=== PATIENT | female | born 1965 | race African-American/Black ===

== ENCOUNTER 2019-02-25 11:52 | Inpatient (IN) | payer MEDICARE, MEDICAID ==
[2019-02-25 15:22] VITALS: BMI 23.9
[2019-02-25] MEDS ORDERED: Ondansetron PF 4 MG/2 ML Vial IVP PRN (15:26)
[2019-02-25] MEDS ORDERED: Ketorolac Tromethamine 30 MG/ML VIAL IVP PRN (15:27)
[2019-02-25] MEDS ORDERED: Morphine 2 MG/ML SYRINGE SLOW IVP PRN (15:28)
[2019-02-25] MEDS ORDERED: Morphine 4 MG/ML VIAL SLOW IVP PRN (15:29)
[2019-02-25] MEDS ORDERED: D5 1/2 NS w/20 mEq KCL 1,000 ML IV SCH (15:30)
[2019-02-25] MEDS ORDERED: Dextrose 5% in Water 1,000 ML IV PRN (15:35)
[2019-02-25] MEDS ORDERED: Dextrose 50% Abboject 50 ML SYRINGE SLOW IVP PRN (15:35)
[2019-02-25] MEDS ORDERED: Sodium Chloride 0.9% 1,000 ML IV SCH (15:45)
[2019-02-25] MEDS ORDERED: Potassium Chloride 40 MEQ in Sodium Chloride 0.9% 500 ML IVPB SCH (16:15)
--- NOTE | 2019-02-25 16:30 | ULT ---
EXAM: US Gallbladder RUQ PROVIDED CLINICAL HISTORY: Acute pancreatitis COMPARISON: None FINDINGS: The pancreas is largely obscured. The IVC appears normal. The liver demonstrates no mass or intrahepatic biliary ductal dilatation. The common duct appears dil ated, measuring 9 mm. Echogenic nonshadowing mobile material seen within the gallbladder lumen compatible with sludge/nonsh adowing stones. There is diffuse gallbladder wall thickening measuring about 3 mm. Sonographic Oseguera sign is documented as negative. Right kidney demonstrates no evidence for hydronephrosis or mass. IMPRESSION: 1. Gallbladder sludge/nonshadowing stones with gallbladder wall thickening. Consider HIDA scan as ind icated. 2. Prominent common duct. Correlate with laboratory values. Consider MRCP if there is concern for marta iary obstructive change.
--- NOTE | 2019-02-25 16:50 | HP ---
PRIMARY CARE PHYSICIAN: Milad Rizo MD. CHIEF COMPLAINT: Worsening abdominal pain. HISTORY OF PRESENT ILLNESS: A 53-year-old female with known history of chronic recurrent pancreatitis, who was recently discharged from [facility] following admission for acute pancreatitis in January, now presents with acute progressively worsening abdominal pain. The patient reportedly developed abdominal pain three days ago associated with nausea and vomiting, which progressively has worsened since then to its peak of 10/10 earlier this morning, hence presentation to the ER in [place]. The patient was treated with analgesic and further evaluation with CT scan of the abdomen and pelvis showed new fluid density around the head and neck of pancreas suggestive of pseudocyst. The patient is transferred over here for further evaluation and treatment since there is no GI physician there in [place]. The patient currently rates her pain at 6/10 after treatment with morphine and Ketoralac. Nausea and vomiting also have subsided with antiemetics and more so, the patient has not had anything to eat or drink today. Last emesis was yesterday. The patient, however, denied hematemesis, hematochezia, melena, hematuria, dysuria, leg swelling, dizziness, chest pain, palpitation, shortness of breath, or focal weakness. She admitted to headache and cough with sputum production, which has been ongoing since about 1 month. She also admitted to tobacco use and history of COPD. There is no history of fever, chills, or rigors. PAST MEDICAL HISTORY: 1. Chronic alcoholic pancreatitis. 2. Choledocholithiasis, status post ERCP and removal of stone. 3. Hypertension. 4. Gastroesophageal reflux disease. 5. Goiter. 6. Hypothyroidism. 7. Type 2 diabetes mellitus. 8. Peripheral neuropathy. 9. COPD. 10. Tobacco abuse disorder. PAST SURGICAL HISTORY: 1. Hysterectomy. 2. Right shoulder surgery. 3. ERCP. FAMILY HISTORY: Significant for hypertension in father. The patient does not know mother's medical history as she in her 20s. SOCIAL HISTORY: The patient currently lives with boyfriend. She is a current everyday smoker. Claims to smoke about six cigarettes per day. She is a former alcoholic, who is sober in the last one year. Denied recreational drug use. ALLERGIES: THE PATIENT REPORTED ALLERGIC REACTION TO KEFLEX. THE REACTION IS SAID TO BE SKIN SHANKS AND BREAKOUT. HOME MEDICATIONS: 1. Ibuprofen 800 mg p.o. t.i.d. p.r.n. for pain. 2. Amitriptyline 50 mg p.o. daily at bedtime. 3. Estradiol 1 mg p.o. daily. 4. Levothyroxine 75 mcg p.o. daily. 5. Lisinopril 10 mg p.o. daily. 6. Omeprazole 40 mg p.o. daily. 7. Sertraline 50 mg p.o. daily at bedtime. 8. Levemir 55 units subcutaneously b.i.d. 9. NovoLog 6 units t.i.d. with meals. 10. Ondansetron 4 mg q.6 sublingually p.r.n. for nausea and vomiting. REVIEW OF SYSTEMS: A 12-point review of system performed was negative other than pertinent positives and negatives included in the history of present illness. PHYSICAL EXAMINATION: VITAL SIGNS: Temperature 97.6, pulse 70, respiratory rate 16, SpO2 of 100% on room air, blood pressure is 141/81. GENERAL: Middle-age female, in [id number] painful distress. Afebrile. Anicteric. Acyanotic. HEENT: Normocephalic, atraumatic. Oral mucosa is moist. NECK: Supple. Nontender with good range of motion. No obvious masses or lymphadenopathy appreciated. CARDIOVASCULAR: Regular rhythm and rate with normal heart sounds one and two. No murmur was appreciated. RESPIRATORY: Good air entry bilaterally with some transmitted breath sounds. No obvious crackle or rhonchi was appreciated. No use of accessory muscles also was appreciated. GI: Full, soft, nondistended with normal bowel sounds. Right upper quadrant and epigastric tenderness noted. EXTREMITIES: Grossly normal looking atraumatic with no edema or erythema. Distal pulses are palpable. MOLD PRESS OPERATOR: Conscious and alert and oriented x3 with appropriate mental status. Cranial nerves 2 through 12 are grossly intact. The patient moves all extremities. PSYCHIATRIC: Normal affect with good insight. No agitation or restlessness. DIAGNOSTIC DATA: CBC showed WBC count of 9.2, hemoglobin of 12.1, MCV of 89.4, platelets of 182. CMP showed sodium 143, potassium 3.3, chloride 104, CO2 of 29, BUN 11, creatinine 0.98, glucose 83, calcium 9.4. Total bilirubin 0.5, AST 11, ALT 10, alkaline phosphatase 106, total protein 6.9, albumin 3.8, and globulin 3.1. Lipase is 20. Lactic acid is 2.2. Initial troponin is 0.017. CT scan of the abdomen and pelvis showed clear lung bases with unremarkable liver and spleen as well as atrophy of the pancreas with dilated pancreatic duct and pancreatic calcification again noted as before. However, there is a new fluid density seen anterior to the pancreatic neck measuring 2.0 cm with mild surrounding inflammatory changes, which seems to be more prominent today compared to prior CT scan of October 2018. ASSESSMENT: 1. Severe abdominal pain. 2. Presumed acute on chronic pancreatitis. 3. New parapancreatic fluid density concerning for pseudocyst. 4. Diabetes mellitus. 5. Chronic cough with sputum production. 6. Chronic obstructive pulmonary disease with possible acute bronchitis. 7. Type 2 diabetes mellitus. 8. Tobacco abuse disorder. PLAN: 1. Keep the patient n.p.o. 2. Start IV fluid therapy with normal saline at 125 as well as D5 water at 50 mL/h. 3. [employer] narcotic analgesic to get adequate pain control. 4. Consult GI for evaluation. 5. Hold long-acting insulin as the patient is n.p.o. for now. Continue sliding scale insulin. 6. Replete serum potassium and get magnesium in the morning. 7. Get urinalysis with reflex to culture as well as sputum culture. 8. Start DuoNeb. 9. DVT prophylaxis with Lovenox will be provided. 10. Further treatment to follow depending on hospital course. 11. The patient is in observation for now depending on hospital course. 12. Code status: Full code. Boyfriend is the surrogate decision maker. Job ID: [id number]
[2019-02-25] MEDS: Dextrose 5% in Water 1,000 ML IV SCH (16:54)
[2019-02-25] MEDS: Morphine 2 MG/ML SYRINGE SLOW IVP PRN (16:55)
[2019-02-25] MEDS: Nicotine 14 MG PATCH TD SCH (17:44)
[2019-02-25] MEDS: Sodium Chloride 0.9% 1,000 ML IV SCH (19:56)
[2019-02-25] MEDS: Famotidine/PF 20 mg/2ml Vial SLOW IVP SCH (19:59)
[2019-02-25 20:25] LABS: Bacteria/HPF None Seen HPF (None Seen); Bilirubin Negative (Negative); Blood, Urine Negative (Negative); Clarity Clear (Clear); Glucose, Urine (Dipstick) Normal (Negative); Leukocyte Negative Leu/uL (Negative); Nitrite Negative (Negative); Protein, Urine (Dipstick) Negative (Neg-Trace); RBC/HPF 0-3 HPF (0-3); Squamous Epithelial 0-3 HPF (0-3); Urobilinogen Normal mg/dL (Less than 2); WBC/HPF 0-3 HPF (0-3)
[2019-02-25 20:31] LABS: Urine Culture Reflex No No
[2019-02-25] MEDS: Morphine 4 MG/ML VIAL SLOW IVP PRN (22:24)
--- NOTE | 2019-02-26 02:20 | CON ---
DATE OF CONSULTATION: 02/25/2019 REASON FOR CONSULTATION: Acute on chronic pancreatitis. CONSULTING PROVIDER: Katia Landry Obi, MD. HISTORY OF PRESENT ILLNESS: The patient is a 53-year-old female with past medical history of COPD, diabetes with neuropathy, hypothyroidism, GERD, hypertension, choledocholithiasis (had ERCP a few months ago in [place]) and alcoholic pancreatitis with recurrent bouts of chronic pancreatitis for the last 20 years, presenting with increased midepigastric abdominal pain. The patient states that she has had recurrent bouts of pancreatitis that have been present for the last 20 years with her initial bout of pancreatitis secondary to increased alcohol consumption. She states that her last episode of pancreatitis was approximately 1-month ago and characterized by increased midepigastric pain. After treatment of this particular condition at the [facility] she was ultimately discharged to home and was in her usual state of health until approximately 2 to 3 days ago when she again had increased midepigastric abdominal pain characterized as a sharp/throbbing type sensation, would radiate to the right upper quadrant, was constant, and reached a severity of 10/10. The pain was worse with drinking cold liquids, turning movements, and eating solid food. The pain was better with administration of ice pack to the region, lying in the position, and the pain medication she has received here in the hospital. She was taking approximately 2 Tylenol and 4 ibuprofen (unknown dosing on both of these medications) for the last 2 to 3 days prior to admission as well. Associated symptoms included increased burping, nausea and vomiting of nonbloody emesis with increase in her abdominal pain, it prompted her to seek healthcare assistance back in the [place] ER. While in the ER, she was noted to have a CT scan that showed the presence of a fluid collection near the neck of the pancreas, so she was transferred to [facility] for further evaluation. Upon interviewing the patient, she states that her abdominal pain is similar to the bouts of pancreatitis that she has had in the past, although it is not as severe when compared to her most recent episode approximately 1-month ago. Currently, she denies any hematemesis, melena, hematochezia, fever, chills, dysphagia, odynophagia, or weight loss. Of note, the patient initially did not admit to illicit drug use, but upon questioning stated that she had used both cocaine and marijuana approximately 1 month ago. REVIEW OF SYSTEMS: A 10-category review of systems was obtained with all responses negative except for the pertinent positives as listed in HPI. PAST MEDICAL HISTORY: As per HPI. PAST SURGICAL HISTORY: Hysterectomy, right shoulder surgery, and more recently ERCP. FAMILY HISTORY: Denies any family history of GI malignancies. SOCIAL HISTORY: She currently smokes about 1/4 to 1/2 pack per day and also endorses use of marijuana and cocaine approximately 1 month ago. However, she denies use of alcohol and has been sober for at least 1 year. OUTPATIENT MEDICATIONS: Reviewed. ALLERGIES: KEFLEX. PHYSICAL EXAMINATION: VITAL SIGNS: Temperature 98.7, pulse 75, blood pressure 139/72, respiratory rate 16, saturating 97% on room air. GENERAL: The patient was lying in bed, in no acute distress. Alert and oriented x4. HEENT: Normocephalic, atraumatic. NECK: Supple. No JVD or scleral icterus noted. CARDIOVASCULAR: Regular rate and rhythm with no discernible murmurs, gallops, or rubs. RESPIRATORY: Clear to auscultation bilaterally with no discernible wheezes or rales. ABDOMEN: Hypoactive bowel sounds. Soft, nondistended. Tenderness to palpation in the midepigastric and right upper quadrant, but otherwise normal. EXTREMITIES: No cyanosis, clubbing, or edema. LABORATORY DATA: CBC with a white blood cell count of 9.2, hemoglobin 12.1, hematocrit 36.8, platelets 182. Chemistry with a sodium of 143, potassium 3.3, chloride 104, CO2 of 29, BUN 11, creatinine 0.98, glucose 83, AST 11, ALT 10, alkaline phosphatase 106, total bilirubin 0.5, lipase 20, TSH 10. BNP 287. Drug of abuse screen from December 2018, was positive for cocaine. IMAGING DATA: Right upper quadrant ultrasound was obtained on February 25, 2019, which showed the common bile duct dilated to approximately 9 mm with sludge/stone seen within the gallbladder and gallbladder wall thickening, but no evidence of cholecystitis. There was also mention of a CT that was obtained in [place] recently showing atrophy of the pancreas with dilated pancreatic duct and pancreatic calcifications. However, there was also a new fluid density seen anterior to the pancreatic neck measuring 2 cm in size with mild inflammatory changes surrounding it consistent with a possible pseudocyst. ASSESSMENT AND PLAN: The patient is a 53-year-old female with past medical history of COPD, tobacco abuse, diabetes with neuropathy, hypothyroidism, GERD, hypertension, choledocholithiasis status post ERCP and stone extraction, and recurrent bouts of chronic pancreatitis, presenting with what appears to be an acute on chronic bout of pancreatitis. Acute on chronic pancreatitis: The patient has a history of chronic pancreatitis that has been present for the last 20 years and usually associated with increased midepigastric abdominal pain that would radiate to her mid back and for which she has responded well to more conservative management. Upon questioning, she has never been on pancreatic enzyme supplementation (at least that she can recall) for her chronic pancreatitis. However, more recently, she did have a bout of pancreatitis approximately 1-month ago with significantly increased severity when compared to prior bouts and was evaluated and treated at [facility]. However, repeat imaging on this admission compared to one month ago was now showing the new appearance of a fluid density anterior to the pancreatic neck measuring 2 cm in size consistent with a possible pseudocyst. It does not have any complex aspects of it nor does it have septations that makes me think that this is something more than just a simple pseudocyst and may be a remnant of her pancreatitis episode approximately 1-month ago. At this time, she seems to be presenting with acute uncomplicated acute on chronic pancreatitis and should be treated with conservative management with IV fluids, pain control, and n.p.o. status. However, given the dilation of her common bile duct to 9 mm and the fact that she still has an intact gallbladder with stones in it, it is mildly concerning for a repeat bout of choledocholithiasis. However, her labs do not reflect an obstructive process at this time. RECOMMENDATIONS: 1. Would increase IV fluids to approximately 150-200 mL/h for the next 8-10 hours, then decrease to 150 mL/h for treatment of her acute on chronic pancreatitis. 2. Would maintain n.p.o. status for now. 3. Pain control per primary team. 4. We will consider advancing her diet tomorrow with the decrease in her IV fluids. 5. We will continue to trend her LFTs daily and if they begin to rise, would order an MRCP for further evaluation of the biliary tree. 6. No intervention is necessary for the pseudocyst as it will most likely be reabsorbed on its own. We will continue to follow. Please call with any questions. Job ID: [id number]
[2019-02-26] MEDS: Sodium Chloride 0.9% 1,000 ML IV SCH ×7 (03:28→22:06)
[2019-02-26] MEDS: Morphine 4 MG/ML VIAL SLOW IVP PRN ×2 (03:29→07:58)
[2019-02-26 06:10] LABS: #Eosinphils 0.1 thou/uL (0.0-0.7); #Lymphocytes 1.7 thou/uL (1.20-3.40); #Monocytes 0.3 thou/uL (0.11-0.59); #Neutrophils 3.6 thou/uL (1.40-6.50); %Basophils 0.3 % (0.0-1.0); %Eosinophils 2.5 % (0.0-10.0); %Monocytes 4.9 % (0.0-10.0); %Neutrophils 62.2 % (42.0-75.0); Hemoglobin 10.4 g/dL (12.0-16.0); Mean Corpuscular HGB CONC 33.7 g/dL (32.0-36.0); Mean Corpuscular Hemoglobin 31.5 pg (27.0-31.0); Mean Corpuscular Volume 93.3 fL (78.0-98.0); Mean Platelet Volume 9.5 fL (7.4-10.4); Platelet Count 162 thou/uL (130-400); RBC Distribution Width 13.5 % (11.5-14.5); Red Blood Cell (RBC) Count 3.32 mill/uL (4.20-5.40); White Blood Cell (WBC) Count 5.7 thou/uL (4.8-10.8)
[2019-02-26 06:35] LABS: ALT (SGPT) 9 U/L (8-55); AST (SGOT) 14 U/L (5-34); Albumin 3.4 g/dL (3.5-5.0); Alkaline Phosphatase 90 U/L (40-150); Anion Gap 9 mmol/L (10-20); BUN (Urea Nitrogen) 5 mg/dL (9.8-20.1); Bilirubin, Total 0.6 mg/dL (0.2-1.2); CRP (Inflammatory) 5.35 mg/dL (= or < 0.5); Calc. Creatinine Clearance 73 mL/min (70-130); Calcium 8.1 mg/dL (7.8-10.44); Carbon Dioxide 25 mmol/L (22-29); Chloride 98 mmol/L (98-107); Estimated GFR-MDRD 69; Globulin 2.7 g/dL (2.4-3.5); Glucose 446 mg/dL (70-105); Lipase 4 U/L (8-78); Magnesium 1.2 mg/dL (1.6-2.6); Potassium 3.2 mmol/L (3.5-5.1); Protein, Total 6.1 g/dL (6.0-8.3); Sodium 129 mmol/L (136-145)
[2019-02-26] MEDS: Dextrose 5% in Water 1,000 ML IV SCH (07:57)
[2019-02-26] MEDS: Enoxaparin Sodium 40 MG/0.4 ML SYRINGE SC SCH (08:00)
[2019-02-26] MEDS: Famotidine/PF 20 mg/2ml Vial SLOW IVP SCH ×2 (08:01→20:35)
[2019-02-26] MEDS ORDERED: Potassium Phosphate 30 MMOL in Sodium Chloride 0.9% 500 ML IVPB SCH (08:30)
[2019-02-26] MEDS ORDERED: Magnesium Sulfate 4 GM in Sodium Chloride 0.9% 250 ML 250 ML IVPB SCH (08:30)
[2019-02-26] MEDS: Insulin Glargine 12 UNITS in Pre-Filled Syringe 1 EACH SC SCH ×2 (09:25→20:35)
[2019-02-26] MEDS: Nicotine 14 MG PATCH TD SCH (16:15)
--- NOTE | 2019-02-26 16:33 | PDOC.HOSPP ---
- Subjective Encounter Date: 02/26/19 Encounter Time: 08:31 Subjective: 53 y/o female with chronic recurrent pancreatitis admitted with worsening abdominal pain associated with nausea and vomiting. Abdominal pain is better but abdomen is distended today. denied emesis or fever. - Objective Vital Signs & Weight: Vital Signs (12 hours) Temp Pulse Resp BP Pulse Ox 02/26/19 13:55 69 16 95 02/26/19 11:23 96 02/26/19 11:22 98.3 F 100 18 129/89 96 02/26/19 08:00 98 F 95 16 133/69 96 02/26/19 07:09 73 12 Weight Admit Weight 157 lb 4.8 oz Weight 157 lb 4.8 oz I&O: 02/25/19 02/26/19 02/27/19 06:59 06:59 06:59 Intake Total 3009 Output Total 2050 900 Balance 959 -900 Result Diagrams: 02/26/19 05:57 02/26/19 05:57 Additional Labs: Accuchecks 02/26/19 02/26/19 02/26/19 14:23 08:08 05:58 POC Glucose 155 H 223 H 212 H 02/25/19 02/25/19 02/25/19 23:09 20:11 17:49 POC Glucose 79 82 81 Hospitalist ROS - Medication Medications: Active Medications Generic Name Dose Route Start Last Admin Trade Name Freq PRN Reason Stop Dose Admin Albuterol/Ipratropium 3 ml 02/25/19 23:00 02/26/19 13:55 Duoneb NEB 3 ml [id number] GRETCHEN Administration Enoxaparin Sodium 40 mg 02/26/19 09:00 02/26/19 08:00 Lovenox SC 40 mg 0900 GRETCHEN Administration Famotidine 20 mg 02/25/19 21:00 02/26/19 08:01 Pepcid SLOW IVP 20 mg Q12HR GRETCHEN Administration Insulin Glargine 12 units/ 0.12 mls @ 0 mls/hr 02/26/19 09:00 02/26/19 09:25 Miscellaneous Medication SC Not Given BID GRETCHEN Sodium Chloride 1,000 mls @ 200 mls/hr 02/26/19 08:22 02/26/19 16:15 Normal Saline 0.9% IV 1,000 mls .Q5H GRETCHEN Administration Morphine Sulfate 4 mg 02/25/19 15:47 02/26/19 07:58 Morphine SLOW IVP 4 mg Q4H PRN Administration Severe Pain (7-10) Morphine Sulfate 2 mg 02/25/19 15:54 02/25/19 16:55 Morphine SLOW IVP 2 mg Q4H PRN Administration Moderate Pain (4-6) Nicotine 14 mg 02/25/19 16:00 02/26/19 16:15 Nicoderm Patch TD 14 mg Q24HR GRETCHEN Administration - Exam General Appearance: awake alert Eye: anicteric sclera ENT: normocephalic atraumatic Neck: supple, symmetric Heart: RRR Respiratory: no wheezes, no rales, no ronchi, normal chest expansion Gastrointestinal: soft, non-tender, normal bowel sounds, distended Extremities: no cyanosis, no edema Neurological: cranial nerve grossly intact, no focal deficits Psychiatric: normal affect, A&O x 3 Hosp A/P (1) Hypothyroidism Code(s): E03.9 - HYPOTHYROIDISM, UNSPECIFIED Status: Acute (2) Cholelithiasis Code(s): K80.20 - CALCULUS OF GALLBLADDER W/O CHOLECYSTITIS W/O OBSTRUCTION Status: Acute (3) Acute on chronic pancreatitis Code(s): K85.90 - ACUTE PANCREATITIS WITHOUT NECROSIS OR INFECTION, UNSP; K86.1 - OTHER CHRONIC PANCREATITIS Status: Acute (4) History of alcohol abuse Code(s): Z87.898 - PERSONAL HISTORY OF OTHER SPECIFIED CONDITIONS Status: Acute (5) DM II (diabetes mellitus, type II), controlled Code(s): E11.9 - TYPE 2 DIABETES MELLITUS WITHOUT COMPLICATIONS Status: Chronic (6) Essential hypertension Code(s): I10 - ESSENTIAL (PRIMARY) HYPERTENSION Status: Chronic (7) Hyponatremia Code(s): E87.1 - HYPO-OSMOLALITY AND HYPONATREMIA Status: Acute (8) Pancreatic pseudocyst/cyst Code(s): K86.2 - CYST OF PANCREAS; K86.3 - PSEUDOCYST OF PANCREAS Status: Acute (9) COPD with acute bronchitis Code(s): J44.0 - CHRONIC OBSTRUCTIVE PULMON DISEASE W ACUTE LOWER RESP INFCT; J20.9 - ACUTE BRONCHITIS, UNSPECIFIED Status: Acute - Plan Continue IVF therapy. Continue insulin therapy NPO to continue. Awaiting GI re evaluation Analgesic and antiemetic as needed Follow CMP
[2019-02-26] MEDS: Insulin Regular 300 UNITS/3 ML VIAL SC PRN (18:28)
[2019-02-26] MEDS: Morphine 2 MG/ML SYRINGE SLOW IVP PRN (23:10)
--- NOTE | 2019-02-26 23:35 | PRG ---
DATE OF SERVICE: 02/26/2019 REASON FOR CONSULTATION: Acute on chronic pancreatitis. SUBJECTIVE: The patient states that she was feeling much better today with significantly decreased abdominal pain. She was advanced in her diet to clear liquid diet and did experience a mild increase in her pain, but she could not differentiate whether or not this was her pancreatic pain versus hunger pains. However, she did also remark that she has had significant increased abdominal distention over the last 24 hours, but denies any lower extremity edema or difficulty breathing. Otherwise, she denies any nausea, vomiting, fevers, chills, hematemesis, melena, or hematochezia. Of note, initial evaluation of the patient could not be performed due to the fact that she went outside to smoke. OBJECTIVE: VITAL SIGNS: Temperature 98.6, pulse 79, blood pressure 144/84, respiratory rate 20, and saturating 98% on room air. GENERAL: The patient was lying in bed, in no acute distress. Alert and oriented x4. CARDIOVASCULAR: Regular rate and rhythm. RESPIRATORY: Clear to auscultation bilaterally. ABDOMEN: Normoactive bowel sounds. Soft. Mild to moderately distended. Tenderness to palpation in the midepigastric region. EXTREMITIES: No cyanosis, clubbing, or edema. LABORATORY DATA: CBC with a white blood cell count of 5.7, hemoglobin 10.4, hematocrit 31 . Chemistry with a sodium of 129, potassium 3.2, chloride 98, CO2 of 25, BUN 5, creatinine 1.09, glucose 446, AST 14, ALT 9, alkaline phosphatase 90, and total bilirubin 0.6. IMAGING DATA: No current GI imaging is available for review. ASSESSMENT AND PLAN: The patient is a 53-year-old -Citizen Of [place] female with past medical history of chronic obstructive pulmonary disease, tobacco abuse, diabetes with neuropathy, hypothyroidism, gastroesophageal reflux disease, hypertension, choledocholithiasis status post endoscopic retrograde cholangiopancreatography with stone extraction and recurrent bouts of pancreatitis, presenting with an acute on chronic bout of pancreatitis. Acute on chronic pancreatitis: The patient initially presented with increased midepigastric abdominal pain that was similar in location and character to her prior bouts of pancreatitis. She was ultimately evaluated in the [place] ER, where a CT scan was reportedly was performed showing a 2 cm fluid density anterior to the pancreatic neck concerning for possible pseudocyst. However, this imaging study is unavailable for review given the fact that it was performed outside our system. At this time, she is currently responding to more conservative management with aggressive IV fluid administration, although she does have increasing abdominal distention, which is worrisome for third spacing of fluid given the significant amount of fluids that she has gotten over the last 24 hours, and/or expansion of pseudocyst or development of ascites. RECOMMENDATIONS: 1. We would decrease her IV fluids to approximately 100 mL/h and further decrease with advancement of her diet. 2. Advance her diet as tolerated to full liquid diet. 3. Pain control per primary team. 4. Continue to trend her LFTs daily. 5. We would consider either CT of the abdomen and pelvis versus an abdominal ultrasound tomorrow if she continues to have significant abdominal distention. We will continue to follow. Please call with any questions. Job ID: [id number]
[2019-02-27] MEDS: Diabetic Tussin 200 MG/10 ML UDCUP PO PRN ×3 (01:16→17:33)
[2019-02-27 05:49] LABS: #Eosinphils 0.2 thou/uL (0.0-0.7); #Monocytes 0.3 thou/uL (0.11-0.59); #Neutrophils 2.9 thou/uL (1.40-6.50); %Basophils 0.7 % (0.0-1.0); %Eosinophils 4.1 % (0.0-10.0); %Lymphocytes 36.4 % (21.0-51.0); %Monocytes 5.8 % (0.0-10.0); Hemoglobin 11.4 g/dL (12.0-16.0); Mean Corpuscular HGB CONC 33.2 g/dL (32.0-36.0); Mean Corpuscular Hemoglobin 30.8 pg (27.0-31.0); Mean Corpuscular Volume 92.8 fL (78.0-98.0); Mean Platelet Volume 9.4 fL (7.4-10.4); Platelet Count 194 thou/uL (130-400); RBC Distribution Width 13.3 % (11.5-14.5); White Blood Cell (WBC) Count 5.5 thou/uL (4.8-10.8)
[2019-02-27 06:08] LABS: ALT (SGPT) 12 U/L (8-55); AST (SGOT) 15 U/L (5-34); Albumin 3.9 g/dL (3.5-5.0); Alkaline Phosphatase 101 U/L (40-150); Anion Gap 15 mmol/L (10-20); BUN (Urea Nitrogen) 5 mg/dL (9.8-20.1); Bilirubin, Total 0.6 mg/dL (0.2-1.2); Calc. Creatinine Clearance 96 mL/min (70-130); Calcium 8.9 mg/dL (7.8-10.44); Carbon Dioxide 25 mmol/L (22-29); Chloride 105 mmol/L (98-107); Estimated GFR-MDRD Greater than 90; Glucose 117 mg/dL (70-105); Magnesium 1.7 mg/dL (1.6-2.6); Potassium 3.1 mmol/L (3.5-5.1); Protein, Total 6.9 g/dL (6.0-8.3); Sodium 142 mmol/L (136-145)
[2019-02-27] MEDS: Famotidine/PF 20 mg/2ml Vial SLOW IVP SCH ×2 (07:58→20:45)
[2019-02-27] MEDS: Sodium Chloride 0.9% 1,000 ML IV SCH (07:58)
[2019-02-27] MEDS: Enoxaparin Sodium 40 MG/0.4 ML SYRINGE SC SCH (07:58)
[2019-02-27] MEDS: Insulin Glargine 12 UNITS in Pre-Filled Syringe 1 EACH SC SCH ×2 (07:59→20:44)
--- NOTE | 2019-02-27 08:02 | RAD ---
EXAM: Portable chest PROVIDED CLINICAL HISTORY: Cough COMPARISON: None FINDINGS: Cardiac and mediastinal silhouette is within normal limits. No focal consolidation, pleural fluid or pneumothorax evident. IMPRESSION: No evidence for an acute cardiopulmonary process.
[2019-02-27] MEDS: Morphine 2 MG/ML SYRINGE SLOW IVP PRN ×3 (09:04→20:53)
[2019-02-27] MEDS ORDERED: ISOVUE-370 76%-LOCM 1 ML ONE (12:52)
--- NOTE | 2019-02-27 13:43 | CT ---
EXAM: CT Abdomen Pelvis W Con PROVIDED CLINICAL HISTORY: Abdominal distention COMPARISON: 02/25/2019 FINDINGS: The visualized lung bases are free of significant opacity. Interval decrease in size of the previously described fluid collection adjacent to the head of the pa ncreas, now measuring about 7 mm. Heterogeneous enhancement of the pancreas along with numerous pancreatic calcifications are again noted and appear stable. Pneumobilia is noted, presumably on the basis of prior sphincterotomy. The solid abdominal organs demonstrate an otherwise unremarkable CT appearance. There is no bowel dilatation, free fluid or free air apparent. The appendix appears normal. Vascular calcifications are seen. The osseous structures demonstrate no concerning lytic or blastic lesions. IMPRESSION: Interval decrease in fluid collection adjacent to the head of the pancreas.
--- NOTE | 2019-02-27 16:30 | PDOC.HOSPP ---
- Subjective Encounter Date: 02/27/19 Encounter Time: 10:27 Subjective: 53 y/o female with chronic recurrent pancreatitis admitted with worsening abdominal pain associated with nausea and vomiting. Abdomen distension persisted. Abdominal pain, nausea and vomiting have subsided and patient is tolerating full liquid diet. Had worsening of cough and was started on antitussive last night with improvement. - Objective Vital Signs & Weight: Vital Signs (12 hours) Temp Pulse Resp BP Pulse Ox 02/27/19 14:29 70 14 02/27/19 11:50 98.7 F 70 18 136/86 100 02/27/19 08:00 98.3 F 70 18 131/85 100 02/27/19 06:41 80 14 Weight Admit Weight 157 lb 4.8 oz Weight 157 lb 4.8 oz I&O: 02/26/19 02/27/19 02/28/19 06:59 06:59 06:59 Intake Total 3009 3490 600 Output Total 2050 900 Balance 959 2590 600 Result Diagrams: 02/27/19 05:23 02/27/19 05:23 Additional Labs: Accuchecks 02/27/19 02/27/19 02/26/19 11:51 04:50 22:59 POC Glucose 212 H 110 188 H 02/26/19 02/26/19 20:01 17:01 POC Glucose 246 H 278 H Hospitalist ROS - Medication Medications: Active Medications Generic Name Dose Route Start Last Admin Trade Name Freq PRN Reason Stop Dose Admin Albuterol/Ipratropium 3 ml 02/25/19 23:00 02/27/19 14:29 Duoneb NEB 3 ml [id number] GRETCHEN Administration Enoxaparin Sodium 40 mg 02/26/19 09:00 02/27/19 07:58 Lovenox SC 40 mg 0900 GRETCHEN Administration Famotidine 20 mg 02/25/19 21:00 02/27/19 07:58 Pepcid SLOW IVP 20 mg Q12HR GRETCHEN Administration Guaifenesin 200 mg 02/27/19 01:13 02/27/19 08:00 Robitussin Sf PO 200 mg Q8H PRN Administration Cough Insulin Glargine 12 units/ 0.12 mls @ 0 mls/hr 02/26/19 09:00 02/27/19 07:59 Miscellaneous Medication SC 0.12 mls BID GRETCHEN Administration Sodium Chloride 1,000 mls @ 100 mls/hr 02/26/19 21:23 02/27/19 07:58 Normal Saline 0.9% IV 1,000 mls .Q10H GRETCHEN Administration Insulin Human Regular 0 units 02/25/19 15:35 02/26/19 18:28 Humulin R SC 4 unit .MILD SLIDING SCALE PRN Administration Mild Correctional Scale Morphine Sulfate 4 mg 02/25/19 15:47 02/26/19 07:58 Morphine SLOW IVP 4 mg Q4H PRN Administration Severe Pain (7-10) Morphine Sulfate 2 mg 02/25/19 15:54 02/27/19 14:28 Morphine SLOW IVP 2 mg Q4H PRN Administration Moderate Pain (4-6) Nicotine 14 mg 02/25/19 16:00 02/26/19 16:15 Nicoderm Patch TD 14 mg Q24HR GRETCHEN Administration - Exam General Appearance: awake alert Eye: anicteric sclera ENT: normocephalic atraumatic Neck: symmetric, no JVD Heart: RRR Respiratory: no wheezes, no rales, no ronchi, normal chest expansion Respiratory - other findings: some transmitted sound noted Gastrointestinal: soft, non-tender, normal bowel sounds, distended Extremities: no edema Neurological: cranial nerve grossly intact Psychiatric: normal affect, A&O x 3 Hosp A/P (1) Acute on chronic pancreatitis Code(s): K85.90 - ACUTE PANCREATITIS WITHOUT NECROSIS OR INFECTION, UNSP; K86.1 - OTHER CHRONIC PANCREATITIS Status: Acute (2) Cholelithiasis Code(s): K80.20 - CALCULUS OF GALLBLADDER W/O CHOLECYSTITIS W/O OBSTRUCTION Status: Acute (3) History of alcohol abuse Code(s): Z87.898 - PERSONAL HISTORY OF OTHER SPECIFIED CONDITIONS Status: Acute (4) DM II (diabetes mellitus, type II), controlled Code(s): E11.9 - TYPE 2 DIABETES MELLITUS WITHOUT COMPLICATIONS Status: Chronic (5) Essential hypertension Code(s): I10 - ESSENTIAL (PRIMARY) HYPERTENSION Status: Chronic (6) Hyponatremia Code(s): E87.1 - HYPO-OSMOLALITY AND HYPONATREMIA Status: Acute (7) Pancreatic pseudocyst/cyst Code(s): K86.2 - CYST OF PANCREAS; K86.3 - PSEUDOCYST OF PANCREAS Status: Acute (8) COPD with acute bronchitis Code(s): J44.0 - CHRONIC OBSTRUCTIVE PULMON DISEASE W ACUTE LOWER RESP INFCT; J20.9 - ACUTE BRONCHITIS, UNSPECIFIED Status: Acute (9) Hypothyroidism Code(s): E03.9 - HYPOTHYROIDISM, UNSPECIFIED Status: Acute (10) Hypokalemia Code(s): E87.6 - HYPOKALEMIA Status: Acute - Plan Replete serum potassium Discontinue IVF therapy. Continue insulin therapy Advace diet as GI Repeat CT abd showed decrease in the size of pancreatic cyst Analgesic and antiemetic as needed Continue bronchodilators and mucinex Follow CMP Possible Discharge tomorrow.
[2019-02-27] MEDS: Nicotine 14 MG PATCH TD SCH (16:31)
--- NOTE | 2019-02-27 19:15 | PRG ---
DATE OF SERVICE: 02/27/2019 REASON FOR CONSULTATION: Fgwbv-av-zodteyl pancreatitis. SUBJECTIVE: The patient was able to tolerate a full liquid diet today with no significant increase in abdominal pain. However, she did experience some increased nausea and nonbloody emesis x1 this morning with no clear etiology. She does also complain about increased abdominal distention, but states that it is improved when compared to yesterday. She did undergo CT scan earlier today for further evaluation with no difficulties, although the nausea did come after administration of the Readi-Cat associated with oral contrast. Otherwise, she denies any fevers, chills, hematemesis, melena, hematochezia, diarrhea, or constipation. OBJECTIVE: VITAL SIGNS: Temperature 98.2, pulse 70, blood pressure 146/90, respiratory rate 20, saturating 100% on room air. GENERAL: The patient is lying in bed, in no acute distress. Alert and oriented x4. CARDIOVASCULAR: Regular rate and rhythm. RESPIRATORY: Clear to auscultation bilaterally. ABDOMEN: Normoactive bowel sounds. Soft. Mild to moderate abdominal distention. Mild tenderness to palpation in the midepigastric region. EXTREMITIES: No cyanosis, clubbing, or edema. LABORATORY DATA: CBC with a white blood cell count of 5.5, hemoglobin 11.4, hematocrit 34.3, platelets 194. Chemistry with a sodium of 142, potassium 3.1, chloride 105, CO2 of 25, BUN 5, creatinine 0.76, glucose 117, AST 15, ALT 12, alkaline phosphatase 101, total bilirubin 0.6. IMAGING DATA: CT of the abdomen and pelvis was obtained on February 27, 2019, which showed interval decrease in the previously described fluid collection adjacent to the head of the pancreas, now measuring 7 mm in size, heterogeneous enhancement of the pancreas along with numerous pancreatic calcifications are again noted and are stable. Pneumobilia was seen consistent with prior sphincterotomy. There was no evidence of bowel dilatation. No free fluid or free air apparent. ASSESSMENT AND PLAN: The patient is a 53-year-old female with past medical history of COPD; tobacco abuse; diabetes with neuropathy; hypothyroidism; GERD; hypertension; choledocholithiasis, status post ERCP with stone extraction; and recurrent bouts of chronic pancreatitis; presenting with an ingia-ah-jhulbna bout of pancreatitis. 1. Sfccm-fd-nytbfac pancreatitis. The patient is presenting with increased midepigastric abdominal pain consistent with her prior bouts of pancreatitis. Currently, she is responding well to more conservative management with IV fluid administration, slow advancement of her diet and pain control. She has had some increased abdominal distention over the last 24 hours, which was concerning for third spacing related to ybgru-yr-kcbmacz pancreatitis, but CT scan obtained earlier today did not show any significant abnormality. If anything, it showed an interval decrease in the size of the fluid collection surrounding the head of the pancreas. She has been able to tolerate a diet well thus far, so starting her on a low-fat diet may be warranted. Recommendations;. a. We will discontinue her IV fluids if advancing to a low-fat diet. b. Pain control per primary team. If the patient is able to tolerate a low-fat/solid diet, then she could be discharged to follow up in the GI Clinic as an outpatient. We will sign off at this time. Please call with any questions. Job ID: [id number]
[2019-02-27] MEDS: guaiFENesin ER 600 MG TAB PO SCH (20:44)
[2019-02-28 06:00] LABS: ALT (SGPT) 10 U/L (8-55); AST (SGOT) 15 U/L (5-34); Albumin 3.9 g/dL (3.5-5.0); Alkaline Phosphatase 98 U/L (40-150); Anion Gap 13 mmol/L (10-20); BUN (Urea Nitrogen) 7 mg/dL (9.8-20.1); Bilirubin, Total 0.4 mg/dL (0.2-1.2); Calc. Creatinine Clearance 76 mL/min (70-130); Calcium 9.5 mg/dL (7.8-10.44); Carbon Dioxide 26 mmol/L (22-29); Chloride 105 mmol/L (98-107); Estimated GFR-MDRD 74; Globulin 3.1 g/dL (2.4-3.5); Glucose 112 mg/dL (70-105); Potassium 3.7 mmol/L (3.5-5.1); Sodium 140 mmol/L (136-145)
[2019-02-28] MEDS: Enoxaparin Sodium 40 MG/0.4 ML SYRINGE SC SCH (08:16)
[2019-02-28] MEDS: Diabetic Tussin 200 MG/10 ML UDCUP PO PRN (08:17)
[2019-02-28] MEDS: guaiFENesin ER 600 MG TAB PO SCH (08:17)
[2019-02-28] MEDS: Insulin Glargine 12 UNITS in Pre-Filled Syringe 1 EACH SC SCH (08:17)
[2019-02-28] MEDS: Famotidine/PF 20 mg/2ml Vial SLOW IVP SCH (08:24)
[2019-02-28 11:24] VITALS: BP 131/88; TEMP 98.6
[2019-02-28] MEDS: Insulin Regular 300 UNITS/3 ML VIAL SC PRN (12:26)
--- NOTE | 2019-02-28 22:58 | DIS ---
DATE OF ADMISSION: 02/25/2019 DATE OF DISCHARGE: 02/28/2019 REASON FOR HOSPITALIZATION: Abdominal pain, nausea and vomiting. SIGNIFICANT FINDINGS: The patient was found to have acute on chronic pancreatitis. PROCEDURES PERFORMED AND TREATMENTS RENDERED: The patient was seen and evaluated by Gastroenterology, please see full consultation and progress notes for details. The patient was placed on IV fluid resuscitation and bowel rest, which improved the patient's symptoms and she was slowly advanced on diet. When tolerating diet, the patient was recommended safe for discharge by Gastroenterology. CONDITION ON DISCHARGE: Stable. SPECIFIC INSTRUCTIONS FOR THE PATIENT/FAMILY: 1. The patient is recommended to abstain from all alcohol use. 2. The patient recommended to abstain from any high fat foods that may worsen/trigger pancreatitis. 3. The patient is recommended to follow up with Gastroenterology in the outpatient clinic in the next 1 to 2 weeks. 4. The patient is recommended to take all other home medications as directed, to be re-evaluated by primary care physician. 5. The patient is recommended to follow up with primary care physician in the next 5 to 7 days. 6. The patient is recommended to return to [facility] immediately if signs or symptoms return, worsen, or any other new symptoms occur. DISCHARGE MEDICATIONS: 1. Estradiol 1 mg one tablet p.o. daily. 2. Levothyroxine 75 mcg one tablet p.o. daily. 3. Amitriptyline 50 mg one tab p.o. at bedtime. 4. Zofran 4 mg sublingual tablet q.6 hours p.r.n. nausea, vomiting. 5. Lisinopril 10 mg one tablet p.o. daily. 6. Omeprazole 40 mg one tablet p.o. daily. 7. Levemir subcutaneous injection 12 units b.i.d. 8. Sertraline 50 mg one tab p.o. at bedtime. 9. Guaifenesin 600 mg one tablet p.o. q.12 hours p.r.n. cough. 10. Nicotine transdermal patch 14 mg one patch transdermal q.24 hours. HOSPITAL COURSE: Ms. Mckenna is a pleasant 53-year-old female, who presented to [facility] on 02/25/2019 with worsening abdominal pain, nausea, and vomiting. She was found to have acute on chronic pancreatitis. The patient initially presented to [facility] and was transferred for higher level of care. The patient was seen and evaluated by Gastroenterology, please see full consultation and progress notes for details. Gastroenterology recommended IV fluid resuscitation and bowel rest. The patient was slowly reintroduced to diet and when tolerating diet, the patient was recommended safe for discharge by Gastroenterology. I find the patient on the medical floor on 02/28/2019. She is sitting upright in bed, in no apparent distress. The patient with no abdominal pain. The patient is breathing well on room air. The patient is currently eating a bag of Cheetos. The patient had her breakfast and had no discomfort at all. The patient with no nausea or vomiting. As the patient is tolerating diet, she was recommended safe for discharge by Gastroenterology with close followup in the outpatient setting. The patient will need to have strict compliance with food and alcohol restrictions to avoid future complications of acute on chronic pancreatitis. The patient tells me that she has quit drinking and I recommended that she continue to abstain from alcohol and even one alcoholic beverage may cause recurrence of acute on chronic pancreatitis. The patient acknowledges these risks and state that she will be compliant with followup and medical management. The patient is recommended to return to acute care hospital immediately if signs or symptoms return, worsen, or any other new symptoms occur. Greater than 39 minutes spent coordinating care and discharge process for this patient. Job ID: [id number]
== END 2019-02-28 12:50 | disposition home or self-care (01) | DRG 439 ==
LOC: 2SW 11:53 → OBSVTOIN 11:53 → T4-B 02-26 10:55
PROVIDERS: ADMIT Internal Medicine Nephrology; ATTEND Internal Medicine Nephrology
DX: K85.90 Acute pancreatitis without necrosis or infection, unspecified (principal); E87.1 Hypo-osmolality and hyponatremia; K86.3 Pseudocyst of pancreas; J44.0 Chronic obstructive pulmonary disease with (acute) lower respiratory infection; E11.42 Type 2 diabetes mellitus with diabetic polyneuropathy; K86.1 Other chronic pancreatitis; I10 Essential (primary) hypertension; K21.9 Gastro-esophageal reflux disease without esophagitis; E04.9 Nontoxic goiter, unspecified; J44.9 Chronic obstructive pulmonary disease, unspecified; E03.9 Hypothyroidism, unspecified; F17.210 Nicotine dependence, cigarettes, uncomplicated; J20.9 Acute bronchitis, unspecified; Z90.710 Acquired absence of both cervix and uterus; Z88.8 Allergy status to other drugs, medicaments and biological substances; Z79.899 Other long term (current) drug therapy; Z87.898 Personal history of other specified conditions; K80.20 Calculus of gallbladder without cholecystitis without obstruction
CPT/HCPCS: 36415; 36416; 71045; 74177; 76705; 80053; 81001; 83615; 83690; 83735; 84100; 85025; 86140; 87070; 87205; 94640; J1650; J1815; J2270; J3475; J3480; J7050; J7620; Q9966; S0028

== ENCOUNTER 2019-06-20 20:48 | Inpatient (IN) | payer MEDICARE, OTHER ==
[2019-06-20] MEDS ORDERED: Morphine 2 MG/ML SYRINGE ONE (22:12)
--- NOTE | 2019-06-20 22:57 | ULT ---
Sonogram right upper quadrant HISTORY: Right upper quadrant pain. FINDINGS: Nonshadowing stones and sludge are evident within the gallbladder lumen. Gallbladder measur es up to 8.7 cm and is elongated but is very narrow. Patient was reportedly tender over the gallbladder fossa at the time of the exam. Common duct measures up to 0.8 cm diameter. Calcifications of the pancreas correlate with those demonstrated on recent CT. Consistent with chroni c pancreatitis. No focal liver abnormalities. No free fluid evident. IMPRESSION: Cholelithiasis. Findings of acute cholecystitis include positive sonographic Oseguera sign and mild common bile duct di latation. Correlation regarding other signs and symptoms of acute cholecystitis is required.
[2019-06-20] MEDS ORDERED: Senokot S 8.6-50 MG TAB PO PRN (23:56)
[2019-06-20] MEDS ORDERED: Ondansetron PF 4 MG/2 ML Vial IVP PRN (23:56)
[2019-06-20] MEDS ORDERED: Dextrose 50% Abboject 50 ML SYRINGE SLOW IVP PRN (23:57)
[2019-06-20] MEDS ORDERED: Dextrose 5% in Water 1,000 ML IV PRN (23:57)
[2019-06-21] MEDS ORDERED: Morphine 2 MG/ML SYRINGE SLOW IVP PRN ×2 (00:50→14:24)
[2019-06-21] MEDS ORDERED: Sodium Chloride 0.9% 1,000 ML IV SCH (00:51)
[2019-06-21] MEDS ORDERED: Ondansetron ODT 4 MG TAB SL PRN (00:51)
[2019-06-21 00:55] VITALS: BMI 23.6
[2019-06-21] MEDS: Sodium Chloride 0.9% 1,000 ML IV SCH ×4 (02:26→23:50)
[2019-06-21] MEDS: Ampicillin/Sulbactam 1.5 GM in Sodium Chloride 0.9% 100 ML IVPB SCH ×4 (03:09→20:19)
[2019-06-21] MEDS: Morphine 4 MG/ML VIAL SLOW IVP PRN ×2 (05:14→11:42)
--- NOTE | 2019-06-21 05:26 | HP ---
CHIEF COMPLAINT: Abdominal pain. HISTORY OF PRESENT ILLNESS: The patient is a 53-year-old female with a past medical history of pancreatitis and alcohol use, who presents to the hospital with complaints of abdominal pain going on for the past few days. The patient stated that she did have some pain associated with certain type of foods. She was unable to explain to me exactly what those foods were. The patient states that today her pain was significantly intense to the point that she had to take 10 ibuprofen's to go to work. The patient stated that even with that, her pain did not resolve. She denies any nausea, vomiting, or any diarrhea. She denies any fevers or chills either. The patient stated that over the weekend, she had about 5 beers with her brother. The patient stated that she had biliary stones removed in [facility], it was less than 6 months ago according to her. PAST MEDICAL HISTORY: She has a history of type 2 diabetes, insulin-dependent, hypothyroidism, reflux, pancreatitis, hypertension. PAST SURGICAL HISTORY: She has had a removal of gallstones, which was done recently. According to her, last year, she has also had oophorectomy. SOCIAL HISTORY: She drinks occasionally at times, had 5 beers on Thursday. She does use crack cocaine and also she does smoke about 4 or 5 cigarettes a day. She currently lives by herself and she is a full code. FAMILY HISTORY: The daughter has a history of drug abuse. Otherwise, no other medical history. ALLERGIES: SHE IS ALLERGIC TO KEFLEX. SHE GETS HIVES. MEDICATIONS: She is on; 1. Amitriptyline 50 mg daily. 2. Levemir 55 units twice a day. 3. Lisinopril 10 mg daily. 4. Levothyroxine 0.75 daily. 5. Omeprazole 20 mg daily. 6. Zoloft 50 mg daily. 7. Ibuprofen as needed. PHYSICAL EXAMINATION: VITAL SIGNS: Temperature of 98.8, 97% on room air, respiratory rate 18, pulse 85, blood pressure 115/55. GENERAL: She is awake, alert, and oriented x3. Does not appear in distress. HEENT: Normocephalic, atraumatic. No lymphadenopathy noted. Pupils equal, reactive to light. CV: S1 and S2 present. No murmurs, rubs, or gallops. LUNGS: Clear to auscultation. No rhonchi or wheezes noted. ABDOMEN: Soft. Pain upon palpation to right upper quadrant and epigastric area. Bowel sounds are present x2. EXTREMITIES: No edema. Pedal pulses are present x2. NEUROVASCULAR: No focal deficits noted. SKIN: No cuts, lesions, or bruises noted. LABORATORY RESULTS: WBCs of 12.2, hemoglobin of 13.6, hematocrit of 44.3, platelets of 116. She did have a chemistry; sodium of 129, potassium of 4.4, BUN of 35, creatinine of 2.48. Her sugar initially was 789. She had a mildly elevated lipase at 553. She did have an abdominal ultrasound and a CT of abdomen and pelvis. The abdominal ultrasound indicates acute cholecystitis and she also has mild common duct dilation. She did have a CT abdomen and pelvis, which indicated chronic pancreatitis, cystic dilation of the pancreatic duct is presumed to be remote bouts of infection-inflammatory. ASSESSMENT AND PLAN: The patient is a very nice 53-year-old female, who presents to the hospital with abdominal pain. 1. Abdominal pain, most likely secondary to acute cholecystitis. Also, she has pancreatitis. We will start her on some IV hydration, n.p.o., GI and Surgery has been consulted. The patient apparently had a bile stone extracted less than 6 months ago per patient at [facility]. We will keep her n.p.o. I will start this patient also on IV antibiotics and close monitoring. 2. Acute kidney injury. This could be also secondary to dehydration versus also secondary to NSAID use. Her creatinine usually is at baseline, which is today 2.48. We will continue to monitor. We will start on some gentle hydration. 3. Hyperglycemia. She has diabetes. I will give her some insulin. We will start her on her home dose insulin. 4. Abdominal pain, epigastric pain. We will start her on a PPI. The patient states that she has been taking NSAIDs. She took about 10 Advil before coming into work. I have advised the patient not to do so. 5. Deep venous thrombosis prophylaxis. We will put patient on enoxaparin. Job ID: [id number]
[2019-06-21 05:46] LABS: #Eosinphils 0.2 thou/uL (0.0-0.7); #Lymphocytes 1.2 thou/uL (1.20-3.40); #Monocytes 0.5 thou/uL (0.11-0.59); #Neutrophils 5.5 thou/uL (1.40-6.50); %Basophils 0.5 % (0.0-1.0); %Eosinophils 2.5 % (0.0-10.0); %Lymphocytes 16.4 % (21.0-51.0); %Monocytes 6.9 % (0.0-10.0); %Neutrophils 73.7 % (42.0-75.0); Hemoglobin 11.4 g/dL (12.0-16.0); Mean Corpuscular HGB CONC 32.5 g/dL (32.0-36.0); Mean Corpuscular Hemoglobin 30.2 pg (27.0-31.0); Mean Corpuscular Volume 92.9 fL (78.0-98.0); Mean Platelet Volume 10.4 fL (7.4-10.4); Platelet Count 102 thou/uL (130-400); RBC Distribution Width 12.5 % (11.5-14.5); Red Blood Cell (RBC) Count 3.78 mill/uL (4.20-5.40); White Blood Cell (WBC) Count 7.5 thou/uL (4.8-10.8)
[2019-06-21 06:08] LABS: Anion Gap 9 mmol/L (10-20); BUN (Urea Nitrogen) 21 mg/dL (9.8-20.1); Calc. Creatinine Clearance 66 mL/min (70-130); Calcium 8.4 mg/dL (7.8-10.44); Carbon Dioxide 24 mmol/L (22-29); Chloride 111 mmol/L (98-107); Estimated GFR-MDRD 63; Glucose 227 mg/dL (70-105); Potassium 3.9 mmol/L (3.5-5.1); Sodium 140 mmol/L (136-145)
[2019-06-21] MEDS: Folic Acid 1 MG TAB PO SCH (08:18)
[2019-06-21] MEDS: Pantoprazole 40 MG VIAL IVP SCH ×2 (08:18→20:20)
[2019-06-21] MEDS: Enoxaparin Sodium 40 MG/0.4 ML SYRINGE SC SCH (08:19)
[2019-06-21] MEDS: Insulin Glargine 5 UNITS in Pre-Filled Syringe 1 EACH SC SCH (08:19)
[2019-06-21 10:38] LABS: #Eosinphils 0.2 thou/uL (0.0-0.7); #Monocytes 0.4 thou/uL (0.11-0.59); #Neutrophils 4.8 thou/uL (1.40-6.50); %Basophils 0.5 % (0.0-1.0); %Eosinophils 2.6 % (0.0-10.0); %Lymphocytes 16.1 % (21.0-51.0); %Monocytes 6.1 % (0.0-10.0); %Neutrophils 74.7 % (42.0-75.0); Hemoglobin 11.4 g/dL (12.0-16.0); Mean Corpuscular HGB CONC 34.7 g/dL (32.0-36.0); Mean Corpuscular Hemoglobin 31.9 pg (27.0-31.0); Mean Corpuscular Volume 91.9 fL (78.0-98.0); Mean Platelet Volume 10.9 fL (7.4-10.4); Platelet Count 85 thou/uL (130-400); RBC Distribution Width 12.5 % (11.5-14.5); Red Blood Cell (RBC) Count 3.58 mill/uL (4.20-5.40); White Blood Cell (WBC) Count 6.4 thou/uL (4.8-10.8)
[2019-06-21 10:58] LABS: ALT (SGPT) 12 U/L (8-55); AST (SGOT) 18 U/L (5-34); Albumin 3.4 g/dL (3.5-5.0); Alkaline Phosphatase 96 U/L (40-110); Anion Gap 9 mmol/L (10-20); BUN (Urea Nitrogen) 18 mg/dL (9.8-20.1); Bilirubin, Total 0.7 mg/dL (0.2-1.2); Calc. Creatinine Clearance 70 mL/min (70-130); Calcium 8.2 mg/dL (7.8-10.44); Carbon Dioxide 25 mmol/L (22-29); Chloride 110 mmol/L (98-107); Estimated GFR-MDRD 68; Globulin 2.5 g/dL (2.4-3.5); Glucose 255 mg/dL (70-105); Lipase 71 U/L (8-78); Potassium 3.5 mmol/L (3.5-5.1); Protein, Total 5.9 g/dL (6.0-8.3); Sodium 140 mmol/L (136-145)
[2019-06-21] MEDS: HumaLOG 300 UNITS/3 ML VIAL SC PRN (11:41)
[2019-06-21] MEDS: Morphine 2 MG/ML SYRINGE SLOW IVP PRN ×3 (14:40→22:19)
[2019-06-21] MEDS: Amitriptyline HCl 25 MG TAB PO SCH (20:20)
[2019-06-22] MEDS ORDERED: Multivitamins, Adult 10 ML, Folic Acid 1 MG, Thiamine HCl 100 MG in Dextrose 5 %-0.45 %... IV SCH (02:00)
[2019-06-22] MEDS: Ampicillin/Sulbactam 1.5 GM in Sodium Chloride 0.9% 100 ML IVPB SCH ×4 (02:47→20:18)
--- NOTE | 2019-06-22 03:18 | CON ---
DATE OF CONSULTATION: 06/21/2019 REASON FOR CONSULTATION: Pancreatitis. CONSULTING PROVIDER: Joanna Mcdermott MD HISTORY OF PRESENT ILLNESS: The patient is a 53-year-old female with past medical history of diabetes, hypothyroidism, gastroesophageal reflux disease, hypertension, alcohol abuse, cocaine abuse, and recurrent/chronic pancreatitis presenting with increased midepigastric abdominal pain. She states that she was in her usual state of health until approximately 3 days prior to admission when she had sudden onset of increased midepigastric abdominal pain characterized as a sharp/aching type sensation, was constant with waxing/waning severity. Would radiate to the right upper quadrant and left upper quadrant and reached a severity of 10/10. This pain was worse with increased movements/physical activity, sitting up, eating or drinking, and having a bowel movement. The pain was better primarily with lying down and with the administration of pain medications during the ER visit and subsequent hospitalization. When compared to her prior bouts of pancreatitis in the past, she states that this is the same character and severity of her pain, but is in a slightly different location. Upon chart review, the patient was admitted to the hospital in late last year with similar symptoms with an acute on chronic bout of pancreatitis and responded well to more conservative management and had been doing well until approximately 3 days ago. Of note, the patient had been attempting to stop alcohol use, but over the course of this weekend and shortly before the onset of her pain, consumed approximately 4 to 5 beers with worsening of her abdominal pain after consumption. Also of note, the patient did have what sounds like an ERCP with biliary stone removal at [facility] approximately 6 months ago. It is unclear if this was related to an episode of gallstone pancreatitis. Currently, she denies any melena, hematochezia, hematemesis, dysphagia, odynophagia, or weight loss, but does have nausea and vomiting with nonbloody emesis, subjective fevers and chills. REVIEW OF SYSTEMS: A 10-category review of systems was obtained with all responses negative except for the pertinent positives as listed in HPI. PAST MEDICAL HISTORY: As per HPI. PAST SURGICAL HISTORY: Probable ERCP with biliary stone removal, but no cholecystectomy. Also has had an oophorectomy. FAMILY HISTORY: Denies any GI malignancies. SOCIAL HISTORY: She has continued to drink occasionally with most recent consumption of five beers approximately 3 to 4 days ago. She does also continue to use crack cocaine, again last use being 3 to 4 days ago. She does endorse smoking tobacco at approximately 1/4 pack per day. OUTPATIENT MEDICATIONS: Reviewed. ALLERGIES: KEFLEX. PHYSICAL EXAMINATION: VITAL SIGNS: Temperature 98.6, pulse 66, blood pressure 148/79, respiratory rate 19, and saturating 97% on room air. GENERAL: The patient was lying in bed, in no acute distress. Alert and oriented x4. HEENT: Normocephalic and atraumatic. NECK: Supple. No JVD or scleral icterus noted. CARDIOVASCULAR: Regular rate and rhythm with no discernible murmurs, gallops, or rubs. RESPIRATORY: Clear to auscultation bilaterally with no discernible wheezes or rales. ABDOMEN: Hypoactive bowel sounds. Soft, nondistended. Tenderness to palpation in the midepigastric, right upper quadrant, and periumbilical regions. EXTREMITIES: No cyanosis, clubbing, or edema. LABORATORY DATA: CBC with white blood cell count of 6.4, hemoglobin 11.4, hematocrit 32.9, platelets 85. Chemistry with sodium of 140, potassium 3.5, chloride 110, CO2 of 25, BUN 18, creatinine 1.03. Platelets 255. AST 18, ALT 12, alkaline phosphatase 96, total bilirubin 0.7, albumin 3.4. IMAGING DATA: Abdominal ultrasound was obtained on June 20, 2019, which showed stones and sludge within the gallbladder lumen and a common bile duct measuring approximately 8 mm in diameter. Significant calcifications were also seen within the pancreas consistent with chronic pancreatitis. ASSESSMENT AND PLAN: The patient is a 53-year-old female with past medical history of diabetes, hypothyroidism, gastroesophageal reflux disease, hypertension, alcohol abuse, cocaine abuse, and chronic pancreatitis, presenting with increased midepigastric abdominal pain consistent with an acute on chronic bout of pancreatitis. Acute on chronic pancreatitis: The patient is presenting with the sudden onset of increased midepigastric abdominal pain that has been present for the last 3 days and characterized as a sharp/aching type sensation, reaching a severity of 10/10. She experiences pain shortly after a binge drinking episode of drinking approximately 5 beers within a 6-hour time. When compared to her prior bouts of pancreatitis in the past, the patient's pain is similar in character in severity, but is slightly changed in terms of its location. However, upon chart review, the patient did experience a very similar location during her last hospitalization. Currently, she is presenting with imaging, showing stones and sludge within the gallbladder lumen, but her current LFT pattern is not indicative of obstruction, making the possibility of gallstone pancreatitis highly unlikely. At this point, it sounds more an episode of acute on chronic pancreatitis (especially given the normal lipase) mediated by increased alcohol consumption. Currently, she is not presenting with any alarm features nor does she have any concerning findings on imaging, making this acute uncomplicated pancreatitis. RECOMMENDATIONS: 1. Would continue IV fluid administration at 150 mL/hr over the next 12 to 16 hours and then consider decreasing to 125 mL/hr. 2. Pain control per primary team. 3. Would continue n.p.o. status with consideration of advancing the patient's diet to clear liquid diet tomorrow if pain is adequately controlled. 4. We will continue to monitor her LFTs daily given the presence of gallstones and an acute on chronic episode of pancreatitis. 5. Strongly encouraged alcohol and cocaine cessation. 6. Would refrain from placing the patient on pancreatic enzyme supplementation given worsening of her pain when given this medication in the past. We will continue to follow. Please call with any questions. Job ID: [id number]
[2019-06-22 05:35] LABS: #Eosinphils 0.1 thou/uL (0.0-0.7); #Lymphocytes 1.4 thou/uL (1.20-3.40); #Monocytes 0.4 thou/uL (0.11-0.59); #Neutrophils 3.3 thou/uL (1.40-6.50); %Basophils 0.4 % (0.0-1.0); %Eosinophils 2.5 % (0.0-10.0); %Lymphocytes 26.7 % (21.0-51.0); %Monocytes 6.8 % (0.0-10.0); %Neutrophils 63.6 % (42.0-75.0); Hemoglobin 11.7 g/dL (12.0-16.0); Mean Corpuscular Hemoglobin 31.4 pg (27.0-31.0); Mean Corpuscular Volume 92.5 fL (78.0-98.0); Mean Platelet Volume 10.8 fL (7.4-10.4); Platelet Count 90 thou/uL (130-400); RBC Distribution Width 12.4 % (11.5-14.5); Red Blood Cell (RBC) Count 3.71 mill/uL (4.20-5.40); White Blood Cell (WBC) Count 5.2 thou/uL (4.8-10.8)
[2019-06-22] MEDS: Levothyroxine Sodium 75 MCG TAB PO SCH (05:48)
[2019-06-22] MEDS: Sodium Chloride 0.9% 1,000 ML IV SCH ×3 (05:49→23:01)
[2019-06-22 05:55] LABS: Anion Gap 14 mmol/L (10-20); BUN (Urea Nitrogen) 11 mg/dL (9.8-20.1); Calc. Creatinine Clearance 88 mL/min (70-130); Calcium 8.6 mg/dL (7.8-10.44); Carbon Dioxide 20 mmol/L (22-29); Chloride 108 mmol/L (98-107); Estimated GFR-MDRD 88; Glucose 207 mg/dL (70-105); Lipase 35 U/L (8-78); Potassium 3.4 mmol/L (3.5-5.1); Sodium 139 mmol/L (136-145)
[2019-06-22] MEDS: Estradiol 1 MG TAB PO SCH (08:39)
[2019-06-22] MEDS: Folic Acid 1 MG TAB PO SCH (08:39)
[2019-06-22] MEDS: Insulin Glargine 5 UNITS in Pre-Filled Syringe 1 EACH SC SCH (08:39)
[2019-06-22] MEDS: Pantoprazole 40 MG VIAL IVP SCH ×2 (08:39→20:19)
[2019-06-22] MEDS: Lisinopril 10 MG TAB PO SCH (08:39)
[2019-06-22] MEDS: Morphine 2 MG/ML SYRINGE SLOW IVP PRN ×3 (08:40→20:22)
[2019-06-22] MEDS: Enoxaparin Sodium 40 MG/0.4 ML SYRINGE SC SCH (09:26)
[2019-06-22] MEDS: HumaLOG 300 UNITS/3 ML VIAL SC PRN ×2 (11:34→17:05)
--- NOTE | 2019-06-22 11:35 | PDOC.HOSPP ---
- Subjective Encounter Date: 06/22/19 Encounter Time: 11:30 Subjective: f/u acute cholecystitis and cholelithiasis on supportive mgmt and IVF's. Feels better overall and wanting to eat something. - Objective Vital Signs & Weight: Vital Signs (12 hours) Temp Pulse Resp BP BP Pulse Ox 06/22/19 08:39 145/75 H 06/22/19 08:00 98.2 F 70 21 H 147/75 H 96 06/22/19 04:25 98.5 F 79 19 148/83 H 93 L Weight Weight 155 lb Result Diagrams: 06/22/19 05:20 06/22/19 05:20 Additional Labs: Accuchecks 06/22/19 06/21/19 06/21/19 04:31 20:06 16:07 POC Glucose 209 H 192 H 143 H 06/21/19 11:33 POC Glucose 292 H Laboratory Tests 06/21/19 06/22/19 10:13 05:20 Potassium 3.5 Creatinine 1.03 Lipase 71 35 Radiology Reviewed by me: Yes (ABD sono - + cholecystitis, stones/sludge) Hospitalist ROS - Medication Medications: Active Medications Generic Name Dose Route Start Last Admin Trade Name Freq PRN Reason Stop Dose Admin Amitriptyline HCl 50 mg 06/21/19 21:00 06/21/19 20:20 Elavil PO 50 mg HS GRETCHEN Administration Enoxaparin Sodium 40 mg 06/21/19 09:00 06/22/19 09:26 Lovenox SC Not Given 0900 GRETCHEN Estradiol 1 mg 06/22/19 09:00 06/22/19 08:39 Estrace PO 1 mg DAILY GRETCHEN Administration Folic Acid 1 mg 06/21/19 09:00 06/22/19 08:39 Folvite PO 1 mg DAILY GRETCHEN Administration Ampicillin Sodium/Sulbactam 100 mls @ 200 mls/hr 06/21/19 03:00 06/22/19 08: 39 Sodium 1.5 gm/ Sodium Chloride IVPB 100 mls 0300,0900,1500,2100 GRETCHEN Administration Sodium Chloride 1,000 mls @ 150 mls/hr 06/21/19 01:45 06/22/19 05:49 Normal Saline 0.9% IV Not Given .Q6H40M [facility] Insulin Glargine 5 units/ 0.05 mls @ 0 mls/hr 06/21/19 09:00 06/22/19 08:39 Miscellaneous Medication SC 0.05 mls QAM GRETCHEN Administration Insulin Human Lispro 0 units 06/20/19 23:57 06/21/19 11:41 Humalog SC 4 unit .MILD SLIDING SCALE PRN Administration Mild Correctional Scale Levothyroxine Sodium 75 mcg 06/22/19 06:00 06/22/19 05:48 Synthroid PO 75 mcg 0600 GRETCHEN Administration Lisinopril 10 mg 06/22/19 09:00 06/22/19 08:39 Zestril PO 10 mg DAILY GRETCHEN Administration Morphine Sulfate 2 mg 06/21/19 14:24 06/22/19 08:40 Morphine SLOW IVP 2 mg Q4H PRN Administration Mild-Moderate Pain (1-5) Pantoprazole Sodium 40 mg 06/21/19 09:00 06/22/19 08:39 Protonix IVP 40 mg Q12HR GRETCHEN Administration - Exam General Appearance: NAD, awake alert Eye: PERRL, anicteric sclera ENT: normocephalic atraumatic, no oropharyngeal lesions Neck: supple, symmetric, no JVD, no thyromegaly Heart: RRR, no murmur, no gallops, no rubs, normal peripheral pulses Respiratory: CTAB, no wheezes, no rales, no ronchi, normal chest expansion Gastrointestinal: soft, non-distended, normal bowel sounds, no palpable masses Gastrointestinal - other findings: mild TTP in RUQ Extremities: no cyanosis, no clubbing, no edema Skin: normal turgor, no lesions, no rashes Neurological: cranial nerve grossly intact, no new deficit Musculoskeletal: normal tone, normal strength, no muscle wasting Psychiatric: normal affect, A&O x 3 Hosp A/P (1) Acute cholecystitis due to biliary calculus Code(s): K80.00 - CALCULUS OF GALLBLADDER W ACUTE CHOLECYST W/O OBSTRUCTION Status: Acute Plan: Continue Unasyn, IVF's, pain control as clinically indicated, Gen Surgery consult (2) Chronic pancreatitis Code(s): K86.1 - OTHER CHRONIC PANCREATITIS Status: Chronic Plan: Appears chronic currently, main component related to #1 (3) Alcohol abuse Code(s): F10.10 - ALCOHOL ABUSE, UNCOMPLICATED Status: Acute Plan: Cessation resources prior to d/c (4) Cocaine abuse Code(s): F14.10 - COCAINE ABUSE, UNCOMPLICATED Status: Acute Plan: Cessation resources (5) DM II (diabetes mellitus, type II), controlled Code(s): E11.9 - TYPE 2 DIABETES MELLITUS WITHOUT COMPLICATIONS Status: Chronic Plan: ISS, serial accuchecks, resume home DM regimen when tolerating po intake - Plan continue antibiotics, clinical social work aide, out of bed/ambulate, DVT proph w/SCDs Stable currently Continue IVF's Continue Unasyn Pain control as clinically indicated AM lab: CMP
--- NOTE | 2019-06-22 15:26 | CON ---
DATE OF CONSULTATION: 06/21/2019 CHIEF COMPLAINT: Abdominal pain. HISTORY OF PRESENT ILLNESS: This is a 53-year-old female with a history of chronic pancreatitis. She has chronic alcohol and drug use in the past. She states that she does not drink daily anymore, but this weekend she drank quite heavily. This was followed by severe abdominal pain. The patient notes chronic abdominal pain at rest. She often treats this with cocaine and alcohol. She has not been able to find someone locally who will treat her chronic pain. Previously had been told she had chronic pancreatitis, previously had an ERCP, but she is not sure what for. She never known she had previous history of gallstones before. Her pain is slightly improved now, it is back to her baseline. No nausea. She is hungry. PAST MEDICAL HISTORY: 1. Type 2 diabetes, insulin dependent. 2. Hypothyroidism. 3. Reflux. 4. Pancreatitis. 5. Hypertension. SURGICAL HISTORY: 1. ERCP. 2. Oophorectomy. SOCIAL HISTORY: Still drinks heavily at times. Crack cocaine. Smokes. REVIEW OF SYSTEMS: Ten-system review of systems is otherwise negative unless described above. MEDICATIONS AT HOME: 1. Amitriptyline. 2. Levemir. 3. Lisinopril. 4. Levothyroxine. 5. Omeprazole. ALLERGIES: ALLERGIC TO KEFLEX. PHYSICAL EXAMINATION: VITAL SIGNS: Blood pressure is 125/81, pulse 59, and respirations 12. She is afebrile. HEENT: Sclerae anicteric. Oropharynx clear. NECK: No lymphadenopathy. CHEST: Clear. HEART: Regular rate. ABDOMEN: Soft, but it is tender diffusely, more tender in the epigastric area. IMAGING STUDIES: Ultrasound on presentation showed cholelithiasis, non-shadowing, common bile duct 0.[address] scan from outside institution showed significant chronic pancreatitis findings including likely pancreatic stricture with dilation of her pancreatic duct. ASSESSMENT: 1. Chronic pancreatitis, related to chronic alcoholism, recent alcohol use causing pancreatitis, improved. 2. Gallstones seen on ultrasound; however, this is not a biliary attack and this is not cholecystitis. 3. History of EtOH abuse. 4. History of cocaine abuse. PLAN: Discussed with Dr. Martinez. Her symptoms currently were not related to her gallbladder. She does not necessarily need cholecystectomy at this time. She needs to stop drinking alcohol. It would be good for her to find someone locally to manage her chronic pain. No indication for cholecystectomy. I recommend supportive care. Discharge home in improved. Call if needed. Job ID: [id number]
--- NOTE | 2019-06-22 17:20 | PRG ---
DATE OF SERVICE: 06/22/2019 SUBJECTIVE: Ms. Mckenna feels better today. No current abdominal pain. She is tolerating liquids well. OBJECTIVE: VITAL SIGNS: Temperature 98.3, pulse 70, blood pressure 123/78. GENERAL: She is in no acute distress and alert and oriented x3. LUNGS: Clear to auscultation bilaterally. HEART: Regular rate and rhythm without murmur. ABDOMEN: Soft, nontender, and nondistended. Bowel sounds are present. EXTREMITIES: No lower extremity edema. LABORATORY DATA: White blood cell count 5.2, hemoglobin 11.7, and platelets 90. Creatinine 0.82. Lipase 35. IMPRESSION: 1. Acute flare of chronic calcific pancreatitis. Her underlying pancreatitis is secondary to chronic alcohol abuse. She had a recent alcohol binge that causes the acute flare. 2. History of cholelithiasis and possible choledocholithiasis in the past. She apparently had endoscopic retrograde cholangiopancreatography with stones removed last year some time. She has normal liver tests now and no indication that her acute pancreatitis is related to biliary source. RECOMMENDATIONS: 1. Advance to a fat-restricted diet. 2. Request records from her ERCP in [place], [place], from last year. If she truly had choledocholithiasis with removal of common bile duct stones by ERCP, then she should undergo cholecystectomy at some point in the future. 3. Complete cessation of alcohol and cocaine again advised. 4. She could potentially discharge home tomorrow if she continues to do well. Job ID: [id number]
[2019-06-22] MEDS: Amitriptyline HCl 25 MG TAB PO SCH (20:18)
[2019-06-23] MEDS: Sodium Chloride 0.9% 1,000 ML IV SCH ×2 (00:59→10:31)
[2019-06-23] MEDS: Ampicillin/Sulbactam 1.5 GM in Sodium Chloride 0.9% 100 ML IVPB SCH ×2 (03:32→10:28)
[2019-06-23 06:03] LABS: ALT (SGPT) 46 U/L (8-55); AST (SGOT) 39 U/L (5-34); Albumin 3.3 g/dL (3.5-5.0); Alkaline Phosphatase 266 U/L (40-110); Anion Gap 12 mmol/L (10-20); BUN (Urea Nitrogen) 7 mg/dL (9.8-20.1); Bilirubin, Total 0.7 mg/dL (0.2-1.2); Calc. Creatinine Clearance 76 mL/min (70-130); Calcium 8.3 mg/dL (7.8-10.44); Carbon Dioxide 26 mmol/L (22-29); Chloride 105 mmol/L (98-107); Estimated GFR-MDRD 74; Globulin 2.8 g/dL (2.4-3.5); Glucose 326 mg/dL (70-105); Potassium 3.4 mmol/L (3.5-5.1); Protein, Total 6.1 g/dL (6.0-8.3); Sodium 140 mmol/L (136-145)
[2019-06-23] MEDS: Levothyroxine Sodium 75 MCG TAB PO SCH (06:18)
[2019-06-23] MEDS: HumaLOG 300 UNITS/3 ML VIAL SC PRN ×2 (06:19→11:55)
[2019-06-23] MEDS: Lisinopril 10 MG TAB PO SCH (08:51)
[2019-06-23] MEDS: Insulin Glargine 5 UNITS in Pre-Filled Syringe 1 EACH SC SCH (08:51)
[2019-06-23] MEDS: Folic Acid 1 MG TAB PO SCH (08:51)
[2019-06-23] MEDS: Pantoprazole 40 MG VIAL IVP SCH (08:51)
[2019-06-23] MEDS: Estradiol 1 MG TAB PO SCH (08:51)
[2019-06-23] MEDS: Enoxaparin Sodium 40 MG/0.4 ML SYRINGE SC SCH (10:32)
[2019-06-23 15:27] VITALS: BP 150/80; TEMP 98.1
--- NOTE | 2019-06-24 01:47 | DIS ---
DATE OF ADMISSION: 06/21/2019 DATE OF DISCHARGE: 06/23/2019 DISCHARGE DIAGNOSES: 1. Lsfdo-tk-rggpyss cholecystitis, improved with conservative management. 2. Jgcof-cc-ynixqjy pancreatitis, improved. 3. Alcohol abuse. 4. Cocaine abuse. 5. Diabetes mellitus type 2, insulin requiring. CONSULTATIONS: 1. Dr. Brennan Saez and Dr. Martinez with GI Service. 2. Dr. aCrr with General Surgery Service. PERTINENT LABORATORY AND X-RAY FINDINGS: Potassium ranging between 3.4 to 3.9. Creatinine ranging between 0.82 to 1.10. AST ranging between 18 to 39. ALT ranging between 12 to 46. Lipase ranging between 35-71. CBC showed a white blood cell count ranging between 5.2 to 7.5, hemoglobin 11.7, hematocrit 34. Abdominal ultrasound dated 06/20/2019 showed question of acute cholecystitis with positive Oseguera sign. Mild common bile duct dilation. CT of the abdomen and pelvis dated 06/20/2019 showed findings consistent with chronic pancreatitis. Cystic dilatation of the pancreatic duct. Normal caliber appendix. HOSPITAL COURSE: The patient was initially admitted to the medical floor after presenting with severe abdominal pain with nausea. The patient with longstanding history of chronic pancreatitis in the context of ongoing alcohol abuse, presenting with this presumed noyke-zd-plxhfku pancreatitis. The patient also admitted to cocaine use prior to admission. The patient was initially placed on IV fluids in addition to evaluation by the GI and General Surgery Service. The patient was continued n.p.o. status and placed on broad-spectrum IV antibiotics with Unasyn. The patient was not deemed an appropriate candidate for surgical intervention and GI recommended conservative management including pain control, IV fluids and slow return to dietary intake. The patient was placed on a fat restricted diet, tolerating without difficulty when able to take p.o. intake. Patient clinically stabilized with conservative management and overall remained clinically stable. I have examined the patient at the time of discharge and discussed followup instructions. The patient verbalized understanding and agreement ready for discharge on 06/23/2019. DISCHARGE MEDICATIONS: 1. Amitriptyline 50 mg p.o. at bedtime. 2. Estradiol 1 mg p.o. daily. 3. NovoLog 6 units subcutaneously t.i.d. 4. Levothyroxine 75 mcg p.o. daily. 5. Lisinopril 10 mg p.o. daily. 6. Metformin 1000 mg p.o. b.i.d. 7. Omeprazole 20 mg p.o. daily. 8. Zofran 4 mg sublingually q.8 hours p.r.n. 9. Zoloft 50 mg p.o. at bedtime. FOLLOWUP: The patient may follow up with Dr. Rizo within 7 days of discharge. CONDITION ON DISCHARGE: Stable. ACTIVITY: Ad-yonatan. DIET: ADA and heart healthy with fat restriction. CODE STATUS: Full. DISPOSITION: To home 06/23/2019. TIME SPENT: Total time preparing and coordinating discharge is 31 minutes. Job ID: [id number]
== END 2019-06-23 15:49 | disposition home or self-care (01) | DRG 440 ==
LOC: ERS 20:48 → T4-B 06-21 00:36
PROVIDERS: ADMIT Internal Medicine; ATTEND Internal Medicine
DX: K85.20 Alcohol induced acute pancreatitis without necrosis or infection (principal); K86.0 Alcohol-induced chronic pancreatitis; E11.65 Type 2 diabetes mellitus with hyperglycemia; F17.210 Nicotine dependence, cigarettes, uncomplicated; E03.9 Hypothyroidism, unspecified; K21.9 Gastro-esophageal reflux disease without esophagitis; F10.10 Alcohol abuse, uncomplicated; F14.10 Cocaine abuse, uncomplicated; K80.80 Other cholelithiasis without obstruction; Z79.4 Long term (current) use of insulin; Z79.899 Other long term (current) drug therapy; Z88.8 Allergy status to other drugs, medicaments and biological substances
CPT/HCPCS: 36415; 36416; 76705; 80048; 80053; 83690; 85025; 94760; 96374; C9113; J0295; J1815; J2270; J2405; J3411; J3490

== ENCOUNTER 2019-10-03 21:54 | Emergency (ER) | payer MEDICARE, OTHER ==
[2019-10-03 22:49] LABS: #Basophils 0.1 thou/uL (0.0-0.2); #Eosinphils 0.2 thou/uL (0.0-0.7); #Monocytes 0.5 thou/uL (0.11-0.59); #Neutrophils 7.1 thou/uL (1.40-6.50); %Basophils 0.8 % (0.0-1.0); %Eosinophils 2.3 % (0.0-10.0); %Lymphocytes 20.3 % (21.0-51.0); %Monocytes 4.8 % (0.0-10.0); %Neutrophils 71.8 % (42.0-75.0); Mean Corpuscular Hemoglobin 31.3 pg (27.0-31.0); Mean Corpuscular Volume 92.1 fL (78.0-98.0); Mean Platelet Volume 9.4 fL (7.4-10.4); Platelet Count 214 thou/uL (130-400); RBC Distribution Width 13.2 % (11.5-14.5); Red Blood Cell (RBC) Count 3.82 mill/uL (4.20-5.40); White Blood Cell (WBC) Count 9.9 thou/uL (4.8-10.8)
[2019-10-03 23:08] LABS: ALT (SGPT) 10 U/L (8-55); AST (SGOT) 11 U/L (5-34); Albumin 4.2 g/dL (3.5-5.0); Alkaline Phosphatase 124 U/L (40-110); Anion Gap 12 mmol/L (10-20); BUN (Urea Nitrogen) 17 mg/dL (9.8-20.1); Bilirubin, Total 0.4 mg/dL (0.2-1.2); Calc. Creatinine Clearance 0 mL/min (70-130); Calcium 9.8 mg/dL (7.8-10.44); Carbon Dioxide 27 mmol/L (22-29); Chloride 101 mmol/L (98-107); Estimated GFR-MDRD 50; Globulin 3.1 g/dL (2.4-3.5); Glucose 274 mg/dL (70-105); Lipase 19 U/L (8-78); Potassium 3.7 mmol/L (3.5-5.1); Protein, Total 7.3 g/dL (6.0-8.3); Sodium 136 mmol/L (136-145)
[2019-10-03 23:17] LABS: Bacteria/HPF None Seen HPF (None Seen); Bilirubin Negative (Negative); Blood, Urine Negative (Negative); Clarity Clear (Clear); Glucose, Urine (Dipstick) Greater than 1000 mg/dL (Negative); Leukocyte 25 Leu/uL (Negative); Nitrite Negative (Negative); Protein, Urine (Dipstick) Negative (Neg-Trace); RBC/HPF 0-3 HPF (0-3); Squamous Epithelial 0-3 HPF (0-3); Urobilinogen Normal mg/dL (Less than 2); WBC/HPF 0-3 HPF (0-3)
== END 2019-10-04 00:06 | disposition home or self-care (01) ==
LOC: ERS 21:54
DX: K85.90 Acute pancreatitis without necrosis or infection, unspecified (principal); E11.9 Type 2 diabetes mellitus without complications; K21.9 Gastro-esophageal reflux disease without esophagitis; I10 Essential (primary) hypertension; F17.210 Nicotine dependence, cigarettes, uncomplicated; Z79.4 Long term (current) use of insulin; Z79.899 Other long term (current) drug therapy
CPT/HCPCS: 36415; 80053; 81003; 81015; 83690; 85025; 99284

== ENCOUNTER 2019-10-21 02:21 | Inpatient (IN) | payer MEDICARE, OTHER ==
[2019-10-21] MEDS ORDERED: Ondansetron PF 4 MG/2 ML Vial IVP PRN ×2 (02:42→03:36)
[2019-10-21] MEDS ORDERED: Acetaminophen 325 MG TAB PO PRN ×2 (02:42→03:36)
[2019-10-21] MEDS ORDERED: Ondansetron ODT 4 MG TAB SL PRN (02:42)
--- NOTE | 2019-10-21 02:52 | PDOC.HHP ---
Hospitalist HPI - History of Present Illness Abdominal pain History of Present Illness: Patient is a 53 year old female with PMH cocaine abuse, GERD, DM, hypothyroidism who presents as transfer form [facility] for abdominal pain. Patient had a biliary stent placed on 08/09/2019 for distal CBD stricture by Dr mercado, she was admitted at that time for sepsis, cholangitis, bacteremia from to 08/11. Patient went home after that and reports her abdominal pain has worsened ever since she was discharged. she states it happens every day, is associated with nausea and vomiting, she has lost 20 lbs due to poor PO intake. She deneis bleeding from mouth or anus except for one singular episode of red blood about a week ago. She has history of crack cocaine abuse, and continued to abuse this with last dose reported as 3-4 days ago. She has quit drinking and smoking, however, since she had her stent placed. She reports she is unable to garden or play with her grandkids and feels depressed. She did not follw up as recommended, she reports her GI doctor called her a week ago to inquire how she was doing and set up an appointment for later this week. She had a fever yesterday but does not remember how high. At outside hospital, CT performed revealing distal migration of previously placed CBD stent w/ moderate dilatation w pneumobilia of CBD and intrahepatic biliary ducts proximal, findings suspicious for stenosis of mid CBD or possibly obstructing material within stent. Also found acute and chronic pancreatitis w/ new hypodense mass within pancreatic body and head w/ mass effect on portal vein. These are suspicious for pseudocysts. labs significant for UA w/ glucose 500, lipase 28, Cr 1.5, glucose in blood 406 (now improved to 100s here). AKP 120, lactic 2.0 Hospitalist ROS - Review of Systems Constitutional: reports: fever, chills, weakness, malaise Eyes: denies: pain, vision change, conjunctivae inflammation, eyelid inflammation, redness, other ENT: denies: ear pain, ear discharge, nose pain, nose discharge, nose congestion , mouth pain, mouth swelling, throat pain, throat swelling, other Respiratory: denies: cough, dry, shortness of breath, hemoptysis, SOB with excertion, pleuritic pain, sputum, wheezing, other Cardiovascular: denies: chest pain, palpitations, orthopnea, paroxysmal noc. dyspnea, edema, light headedness, other Gastrointestinal: reports: nausea, vomiting, abdominal pain. denies: diarrhea, constipation, melena, hematochezia, other Genitourinary: denies: dysuria, frequency, incontinence, hematuria, retention, other Musculoskeletal: denies: neck pain, shoulder pain, arm pain, back pain, hand pain, leg pain, foot pain, other Skin: denies: rash, lesions, ashly, bruising, other Neurological: denies: weakness, numbness, incoordination, change in speech, confusion, seizures, other All other systems reviewed; all pertinent +/- noted in HPI/Subj - Medication Medications: medication list reviewed from outside hospital Hospitalist History - Past Medical History Other Medical History: cocaine abuse, GERD, DM, hypothyroidism - Past Surgical History Other Surgical History: oophorectomy, stent CBD stent 08/2019 hysterectomy - Family History Family History: reports: no pertinent history - Social History Smoking Status: Former smoker Alcohol: reports: None (quit 3 months ago, previously heavy use) Drugs: reports: cocaine - Exam General Appearance: NAD, awake alert Eye: PERRL, anicteric sclera ENT: normocephalic atraumatic, no oropharyngeal lesions, moist mucosa Neck: supple, symmetric, no JVD, no thyromegaly, no lymphadenopathy, no carotid bruit Heart: RRR, no murmur, no gallops, no rubs, normal peripheral pulses Respiratory: CTAB, no wheezes, no rales, no ronchi, normal chest expansion, no tachypnea, normal percussion Gastrointestinal: soft, non-distended, normal bowel sounds, no palpable masses, no hepatomegaly, no splenomegaly, no bruit Gastrointestinal - other findings: diffuse abdominal tenderness, most in epigastric region Extremities: no cyanosis, no clubbing, no edema Skin: normal turgor, no lesions, no rashes Neurological: cranial nerve grossly intact, normal sensation to touch, no weakness, no focal deficits, no new deficit Musculoskeletal: normal tone, normal strength, no muscle wasting Psychiatric: normal affect, normal behavior, A&O x 3 Hospitalist Results - Labs Lab results: outside hospital labs reviewed, see HPI for pertinent positives, new labs pending Additional comment: VS [id number] 10/20: bp 128/82 pulse 90 rr 16 o2 98 on ra pain 2 Hospitalist H&P A/P - Plan Plan: Patient is a 53 year old female with PMH cocaine abuse, GERD, DM, hypothyroidism who presents as transfer form [facility] for abdominal pain. # abdominal pain likely due to malpositioned CBD stent - patient has not followed up and pain has worsened since stent was placed in CBD appx 2 months ago. Patient has lost 20 lbs and is not functioning well at home. Continues to abuse drugs until a few days ago. Patient transferred here, [facility] ED discussed with GI who will follow with us this admission. patient was bacteremic last admission presumably due to cholangitis, was treated and discharged on augmentin at that time. At outside hospital, CT performed revealing distal migration of previously placed CBD stent w/ moderate dilatation w pneumobilia of CBD and intrahepatic biliary ducts proximal, findings suspicious for stenosis of mid CBD or possibly obstructing material within stent. Also found acute and chronic pancreatitis w/ new hypodense mass within pancreatic body and head w/ mass effect on portal vein. These are suspicious for pseudocysts. [facility] ED discussed with GI who will follow with us this admission. - admit to IMCU, consult GI, NPO for possible procedure (patient insisted on drinking a bit of water), PRN medications in chart for pain and nausea - GI did not want to initiate empiric antibiotics. 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
[2019-10-21 02:55] VITALS: BMI 20.7
[2019-10-21] MEDS ORDERED: Guaifenesin DM 100-10/5 ML UDCUP PO PRN (03:36)
[2019-10-21] MEDS ORDERED: HYDROcodone/Acetaminophen 5/325 mg Tablet PO PRN (03:36)
[2019-10-21] MEDS ORDERED: hydrALAZINE 20 MG/ML VIAL SLOW IVP PRN (03:36)
[2019-10-21] MEDS ORDERED: cloNIDine 0.1 MG TAB PO PRN (03:36)
[2019-10-21] MEDS ORDERED: Labetalol HCl 100 MG/20 ML VIAL SLOW IVP PRN (03:36)
[2019-10-21] MEDS ORDERED: Promethazine HCl 12.5 MG in Sodium Chloride 0.9% 50 ML IVPB PRN (03:36)
[2019-10-21] MEDS ORDERED: Dextrose 50% Abboject 50 ML SYRINGE SLOW IVP PRN (04:04)
[2019-10-21] MEDS ORDERED: Dextrose 5% in Water 1,000 ML IV PRN (04:04)
[2019-10-21] MEDS: Morphine 4 MG/ML VIAL SLOW IVP PRN ×3 (04:07→11:50)
[2019-10-21] MEDS ORDERED: Sodium Chloride 0.9% 1,000 ML IV SCH (04:15)
[2019-10-21 04:48] LABS: #Basophils 0.1 thou/uL (0.0-0.2); #Eosinphils 0.1 thou/uL (0.0-0.7); #Lymphocytes 1.8 thou/uL (1.20-3.40); #Monocytes 0.4 thou/uL (0.11-0.59); #Neutrophils 5.7 thou/uL (1.40-6.50); %Basophils 0.8 % (0.0-1.0); %Eosinophils 1.3 % (0.0-10.0); %Lymphocytes 22.8 % (21.0-51.0); %Monocytes 4.3 % (0.0-10.0); %Neutrophils 70.8 % (42.0-75.0); Mean Corpuscular HGB CONC 32.1 g/dL (32.0-36.0); Mean Corpuscular Hemoglobin 29.4 pg (27.0-31.0); Mean Corpuscular Volume 91.5 fL (78.0-98.0); Mean Platelet Volume 10.8 fL (7.4-10.4); Platelet Count 147 thou/uL (130-400); RBC Distribution Width 12.9 % (11.5-14.5); Red Blood Cell (RBC) Count 4.07 mill/uL (4.20-5.40)
[2019-10-21 04:49] LABS: PTT 37.6 SEC (22.9-36.1)
[2019-10-21 04:58] LABS: Lactic Acid 0.9 mmol/L (0.5-2.2)
[2019-10-21 05:04] LABS: ALT (SGPT) 9 U/L (8-55); AST (SGOT) 16 U/L (5-34); Albumin 3.7 g/dL (3.5-5.0); Alkaline Phosphatase 120 U/L (40-110); Anion Gap 15 mmol/L (10-20); BUN (Urea Nitrogen) 25 mg/dL (9.8-20.1); Bilirubin, Direct 0.2 mg/dL (0.1-0.3); Bilirubin, Total 0.3 mg/dL (0.2-1.2); Calc. Creatinine Clearance 57 mL/min (70-130); Calcium 9.7 mg/dL (7.8-10.44); Carbon Dioxide 22 mmol/L (22-29); Chloride 105 mmol/L (98-107); Estimated GFR-MDRD 60; Glucose 128 mg/dL (70-105); Lipase 18 U/L (8-78); Potassium 3.1 mmol/L (3.5-5.1); Protein, Total 7.4 g/dL (6.0-8.3); Sodium 139 mmol/L (136-145)
[2019-10-21] MEDS: Sodium Chloride 0.9% 1,000 ML IV SCH ×4 (05:28→20:43)
[2019-10-21] MEDS: Levothyroxine Sodium 75 MCG TAB PO SCH (05:35)
[2019-10-21] MEDS: Insulin Glargine 25 UNITS in Pre-Filled Syringe 1 EACH SC SCH ×2 (08:05→20:44)
[2019-10-21 08:33] LABS: Bilirubin Negative (Negative); Blood, Urine Negative (Negative); Clarity Clear (Clear); Glucose, Urine (Dipstick) 500 mg/dL (Negative); Leukocyte 75 Leu/uL (Negative); Nitrite Negative (Negative); Protein, Urine (Dipstick) 10 mg/dL (Neg-Trace); RBC/HPF 0-3 HPF (0-3); Urobilinogen Normal mg/dL (Less than 2)
[2019-10-21 08:43] LABS: Bacteria/HPF 1+ HPF (None Seen)
[2019-10-21 08:44] LABS: Amphetamine Not Detected (NotDetected); Barbiturates Screen Not Detected (NotDetected); Benzodiazepine Screen Not Detected (NotDetected); Cocaine Metabolite Screen Detected (NotDetected); Medtox Control Line Valid? VALID (VALID); Medtox Reader # READER 1; Methadone Not Detected (NotDetected); Methamphetamine Not Detected (NotDetected); Opiate Screen Detected (NotDetected); Oxycodone Screen Not Detected (NotDetected); Phencyclidine (PCP) Not Detected (NotDetected); THC/Cannabinoid Screen Not Detected (NotDetected); Tricyclic Screen Not Detected (NotDetected); Urine Culture Reflex No No
[2019-10-21] MEDS: Enoxaparin Sodium 40 MG/0.4 ML SYRINGE SC SCH (08:54)
[2019-10-21] MEDS ORDERED: Non-Formulary Item 1 EACH (Insulin Detemir [Levemir Flextouch] 25 UNITS) SQ SCH (09:00)
--- NOTE | 2019-10-21 09:30 | PDOC.HOSPP ---
- Subjective Encounter Date: 10/21/19 Encounter Time: 09:28 Subjective: Ms. Mckenna was seen today in follow-up of abdominal pain. She says the pain is better with Morphine. She does not have any new complaints. - Objective Vital Signs & Weight: Vital Signs (12 hours) Temp Pulse Ox 10/21/19 07:24 98 10/21/19 07:11 97.4 F L 10/21/19 03:03 98 10/21/19 02:57 97.9 F Weight Weight 140 lb 11.2 oz Most Recent Monitor Data Heart Rate from ECG 89 NIBP 113/74 NIBP BP-Mean 87 Respiration from ECG 17 I&O: 10/20/19 10/21/19 10/22/19 06:59 06:59 06:59 Intake Total 695 Balance 695 Result Diagrams: 10/21/19 04:20 10/21/19 04:20 Additional Labs: Accuchecks 10/21/19 10/21/19 10/21/19 08:52 06:16 04:17 POC Glucose 272 H 222 H 141 H 10/21/19 02:53 POC Glucose 144 H Hospitalist ROS - Medication Medications: Active Medications Generic Name Dose Route Start Last Admin Trade Name Freq PRN Reason Stop Dose Admin Hydrocodone Bitart/Acetaminophen 1 tab 10/21/19 03:36 10/21/19 05:25 [place] 5/325 PO 1 tab Q4H PRN Administration Moderate Pain (4-6) Enoxaparin Sodium 40 mg 10/21/19 09:00 10/21/19 08:54 Lovenox SC Not Given 0900 [facility] Insulin Glargine 25 units/ 0.25 mls @ 0 mls/hr 10/21/19 09:00 10/21/19 08:05 Miscellaneous Medication SC 0.25 mls BID GRETCHEN Administration Sodium Chloride 1,000 mls @ 100 mls/hr 10/21/19 07:00 10/21/19 07:07 Normal Saline 0.9% IV 1,000 mls .Q10H GRETCHEN Administration Lactulose 20 gm 10/21/19 09:00 10/21/19 08:01 Lactulose PO 20 gm DAILY GRETCHEN Administration Levothyroxine Sodium 75 mcg 10/21/19 06:00 10/21/19 05:35 Synthroid PO 75 mcg 0600 GRETCHEN Administration Morphine Sulfate 4 mg 10/21/19 02:44 10/21/19 08:04 Morphine SLOW IVP 10/21/19 12:45 4 mg Q4H PRN Administration Pain Pantoprazole Sodium 40 mg 10/21/19 09:00 10/21/19 08:00 Protonix PO 40 mg DAILY GRETCHEN Administration - Exam Eye: PERRL, anicteric sclera Heart: RRR, no murmur, no gallops, no rubs, normal peripheral pulses Respiratory: CTAB, no wheezes, no ronchi Gastrointestinal: soft (+ RUQ tenderness, no rebound or guarding) Extremities: no cyanosis, no clubbing, no edema Neurological: no weakness Psychiatric: normal affect, normal behavior, A&O x 3 Hosp A/P (1) Acute on chronic pancreatitis Code(s): K85.90 - ACUTE PANCREATITIS WITHOUT NECROSIS OR INFECTION, UNSP; K86.1 - OTHER CHRONIC PANCREATITIS Status: Acute (2) COPD (chronic obstructive pulmonary disease) Status: Acute (3) Hypothyroidism Code(s): E03.9 - HYPOTHYROIDISM, UNSPECIFIED Status: Acute (4) DM II (diabetes mellitus, type II), controlled Code(s): E11.9 - TYPE 2 DIABETES MELLITUS WITHOUT COMPLICATIONS Status: Chronic (5) Essential hypertension Code(s): I10 - ESSENTIAL (PRIMARY) HYPERTENSION Status: Chronic - Plan * Abdominal pain- likely due to Biliary STENT migration- await GI evaluation * Continue symptom management with IV Morphine * Continue IV fluids * No overt signs of infection * HTN- blood pressure is on the lower side * DM- blood glucose is stable
[2019-10-21] MEDS ORDERED: PHENYLEPHRINE-NS 100 MCG/ML 10 ML SYRINGE ONE (12:31)
[2019-10-21] MEDS ORDERED: PROPOFOL 200 MG/20 ML VIAL ONE (12:31)
[2019-10-21] MEDS ORDERED: Ondansetron PF 4 MG/2 ML Vial ONE (12:31)
[2019-10-21] MEDS ORDERED: Succinylcholine Chloride 20 MG/ML 10 ml SYRINGE FS ONE (12:31)
[2019-10-21] MEDS ORDERED: Dexamethasone 20 MG/5 ML VIAL ONE (12:31)
[2019-10-21] MEDS ORDERED: Rocuronium Bromide 10 MG/ML (10ML VIAL) ONE (12:31)
[2019-10-21] MEDS ORDERED: Glycopyrrolate 0.2 MG/ML 5 ML SYRINGE ONE (12:31)
[2019-10-21] MEDS ORDERED: Lidocaine 1% PF 5 ML VIAL ONE (12:31)
[2019-10-21] MEDS ORDERED: Morphine 4 MG/ML VIAL SLOW IVP PRN (13:38)
--- NOTE | 2019-10-21 15:17 | PQF ---
Date: 10-21-19 ATTN: DR. REMY CALVILLO/ DR. Wayne MCLAUGHLIN Please exercise your independent, professional judgment in responding to the clarification form. Clinical indicators are provided on the bottom of this form for your review Please check appropriate box(s): [ x] Protein Calorie Malnutrition: [ ] Mild [ x ] Moderate [ ] Severe [ ] Underweight without malnutrition [ ] Cachexia [ ] Other diagnosis [ ] Unable to determine In addition, please specify: Present on Admission (POA): [ ] Yes [ ] No [ ] Unable to determine CLINICAL INDICATORS - SIGNS / SYMPTOMS / LABS / RESULTS AND LOCATION IN MR: BMI 10-21-19: 20.7 H&P: 10-21-19: ABD PAIN, WAS ADMITTED AND AHD A BILIARY STENT PLACED ON FOR DISTAL CBD STRICTURE BY CHARLES, SHE WAS ADMITTED A THIS TIME FOR SEPSIS, CHOLANGITIS, BACTEREMIA FROM 08-08 TO 08-11. NAUSEA AND VOMITING, SHE HAS LOST 20 LBS DUE TO POOR PO INTAKE. HX CRACK COCAINE ABUSE AND CONTINUED USE, DEBILITY, FAILURE TO THRIVE MACHINE VENEER REPAIRER CONSULT 10-21-19: 14-23 lb weight loss, poor appetite, Patient reports a very poor appetite evere since having her biliary stent placed in August, has not felt good. She has only been eating 1 meal/day, "something like a cup of noodles." UBW was 161 lbs in August. MACHINE VENEER REPAIRER CONSULT 10-21-19: 12.6% weight loss in 2 months suggestive of severe malnutrition in the context of acute illness RISK FACTORS / RESULTS AND LOCATION IN MR: MACHINE VENEER REPAIRER CONSULT 10-21-19: cocaine abuse, GERD, DM, hypothyroidism, former smoker, previous heavy alcohol abuse, recurrent pancreatitis with pseudocysts, schizophrenia, HTN TREATMENT / RESULTS AND LOCATION IN MR: MACHINE VENEER REPAIRER CONSULT 10-21-19: 1. Continue NPO status pending GI consult 2. When medically appropriate, recommend ADAT to a Consistent Carb (1800 allyson)/ Low Fat diet 3. Recommend Glucerna Shakes TID to aid with intake once diet ordered 4. Recommend a daily MVI 5. Replace electrolytes PRN Moderate Malnutrition (in acute illness) Energy Intake: <75% of estimated energy requirement for > 7 days Weight Loss: 1-2%/1 week; 5%/ 1 month; 7.5%/3 months Other: mild body fat loss; mild muscle mass loss; mild fluid accumulation; Severe Malnutrition (in acute illness) Energy Intake: < 50% of estimated energy requirement for > 5 days Weight Loss: >1-2%/1 week; >5%/1 month; >7.5%/3 months Other: moderate body fat loss; moderate muscle mass loss; moderate- severe fluid accumulation; measurably reduced rigging supervisor strength Moderate Malnutrition (in chronic illness) Energy Intake: <75% of estimated energy requirement for >1 month Weight Loss: 5%/1 month; 7.5%/3 months; 10%/6 months; 20%/1 year Other: mild body fat loss; mild muscle mass loss; mild fluid accumulation Severe Malnutrition (in chronic illness) Energy Intake: <75% of estimated energy requirement for >1 month Weight Loss: >5%/1 month; >7.5%/3 months; >10%/6 months; >20%/1 year Other: severe body fat loss; severe muscle mass loss; severe fluid accumulation ; measurably reduced rigging supervisor strength (This form is maintained as a part of the permanent medical record) 2014 [employer] All Rights Reserved [email or web address]
--- NOTE | 2019-10-21 15:33 | CON ---
DATE OF CONSULTATION: HISTORY OF PRESENT ILLNESS: Roxanne Mckenan is a 53-year-old female, who was admitted last night to the MICU with abdominal pain. She had a stent placed in before. Her CTA abdomen revealed presence of possibly cholangitis sepsis and a stent that could be infected and malpositioned. Previous history of tobacco abuse, history of cocaine abuse, alcohol abuse. Denies any prior history of TB, pneumonia, or bronchial asthma. In fact, this morning, she is not having any pulmonary issues. The main complaint is abdominal pain. PAST MEDICAL HISTORY: Tobacco abuse, COPD, diabetes, hypothyroidism, pancreatitis, stricture, bile duct. PAST SURGICAL HISTORY: Otherwise included previous ERCP. Previous oophorectomy. HOME MEDICINES: 1. Amitriptyline 50. 2. Lisinopril 10. 3. Synthroid 75. 4. Insulin. 5. Metformin 1000. 6. Zoloft 50. 7. 20. ALLERGIES: KEFLEX. REVIEW OF SYSTEMS: Negative. She is in no respiratory distress except for abdominal pain. She is relatively stable. PHYSICAL EXAMINATION: VITAL SIGNS: Temperature is 97, blood pressure 120/74, pulse rate 18, saturations 96%. GENERAL: Awake, alert, responsive, in no distress. CHEST: No wheezing, crackles. CARDIAC: Normal S1, S2. No murmurs. Abdomen: No masses. LABORATORY DATA: Blood glucose is slightly elevated to 72. Liver function normal. UA is negative. Toxicology shows cocaine and opiates. Chest x-ray is normal. CT abdomen is noted, migration of her previous bile duct stent, possibly sepsis. IMPRESSION: Abdominal pain, duct stenosis, stent sepsis, tobacco abuse, cocaine abuse. PLAN: I agree with present treatment. May start empiric broad-spectrum antibiotics like meropenem. Otherwise, supportive care, PT. Consultation note, 70 minutes, 50% direct patient care. We will follow while in the MICU. Job ID: [id number]
[2019-10-21] MEDS ORDERED: Fentanyl 100 MCG/2 ML VIAL ONE (17:14)
[2019-10-21] MEDS ORDERED: Iopamidol 50 ML FS ONE (17:20)
[2019-10-21] MEDS ORDERED: Indomethacin 50 MG SUPP ONE (17:27)
[2019-10-21] MEDS ORDERED: Promethazine HCl 25 MG/ML VIAL IM PRN (19:28)
[2019-10-21] MEDS ORDERED: Morphine Sulfate 2 MG/ML SYRINGE SLOW IVP PRN (19:28)
[2019-10-21] MEDS ORDERED: Promethazine HCl 25 MG/ML VIAL SLOW IVP PRN (19:28)
[2019-10-21] MEDS ORDERED: HYDROmorphone 2 MG/ML VIAL SLOW IVP PRN (19:28)
[2019-10-21] MEDS ORDERED: Meperidine HCl/PF 25 MG/ML VIAL SLOW IVP PRN (19:28)
[2019-10-21] MEDS ORDERED: Ondansetron HCl/PF 4 MG/2 ML Vial IVP PRN (19:28)
[2019-10-21] MEDS ORDERED: PACU-Morphine 4MG/ML VIAL SLOW IVP PRN (19:28)
[2019-10-21] MEDS ORDERED: Amitriptyline HCl 25 MG TAB PO SCH (21:00)
--- NOTE | 2019-10-21 22:52 | CON ---
DATE OF CONSULTATION: 10/21/2019 CHIEF COMPLAINT: Abdominal pain. HISTORY OF PRESENT ILLNESS: Ms. Mckenna is a 53-year-old woman with a history of chronic pancreatitis and epigastric pain, who was admitted in August of this year with similar symptoms. She underwent ERCP with stenting of a distal bile duct stricture. She was referred to [facility] for endoscopic ultrasound to evaluate for pancreatic neoplasm as a source for the stricture and also for treatment of the stricture and re-stenting. However, she has been unable to follow through with that referral. She has had chronic epigastric aching abdominal pain that was present when she came to the hospital last time and has still persisted over the last couple of months. This pain has worsened over the last couple of weeks and she went back to the emergency room in [place] last night. A CT scan was done that showed the biliary stent to be in place. She was transferred back over to the [facility] for further evaluation and management. She has had no diarrhea or constipation or blood in the stool. PAST MEDICAL HISTORY: Chronic pancreatitis, diabetes mellitus, gastroesophageal reflux, hypothyroidism, polysubstance abuse. PAST SURGICAL HISTORY: Hysterectomy, shoulder surgery, ERCP, biliary plastic stent currently in place. FAMILY HISTORY: Negative for GI malignancies. SOCIAL HISTORY: Prior history of crack cocaine, ongoing marijuana use, ongoing smoking a quarter pack a day. No recent alcohol. ALLERGIES: CEPHALEXIN. OUTPATIENT MEDICATIONS: 1. Metformin. 2. Sertraline. 3. Omeprazole. 4. Lisinopril. 5. Levothyroxine. 6. Insulin. 7. Amitriptyline. REVIEW OF SYSTEMS: Negative x10 systems reviewed except as stated in the history of present illness. PHYSICAL EXAMINATION: VITAL SIGNS: Temperature 97.2, blood pressure 112/71, pulse 91. GENERAL: She is in no acute distress. Alert and oriented x3. HEENT: Eyes have no scleral icterus. Oropharynx is clear without lesions. No cervical or supraclavicular lymphadenopathy. LUNGS: Clear to auscultation bilaterally. HEART: Regular rate and rhythm. ABDOMEN: Soft, tender in the epigastric region without guarding. Bowel sounds are present. EXTREMITIES: No lower extremity edema. Cranial nerves are grossly intact. LABORATORY DATA: White blood cell count 8.0, hemoglobin 12.0, platelets 147, INR 1.0. Creatinine 1.15, down from 1.52 yesterday. Bilirubin 0.3, AST 16, ALT 9, alkaline phosphatase 120, ammonia 35, albumin 3.7, lipase 18. INR 1.0. Cocaine is detected as it has been on pretty much all the drug tests over the last couple years. IMAGING: She had a CT scan of the abdomen and pelvis yesterday in [place]. She has had increased intra and extrahepatic biliary duct dilation and pneumobilia. The common bile duct is noted to be in place with the stent above the level of the stricture. It has migrated down somewhat, but as long as the proximal phalange is above the distal stricture, then it is in adequate position. Her liver tests are normal. Continuing with the CT scan, the gallbladder is in place and appeared mildly distended. The pancreas showed inflammatory stranding around the pancreas. There were scattered calcifications within the pancreas. There is a new 3.3 x 4.1 cm hypodense mass within the proximal pancreatic body. An additional 1.7 cm mass is also seen in the pancreatic head causing some mass effect on the portal vein, some dilation of the pancreatic duct is seen which is similar to previous imaging. These masses were reported as suspicious for pseudocyst. IMPRESSION: Common bile duct stricture at the level of the head of the pancreas. This stricture appears to most likely be secondary to her chronic pancreatitis and the obvious mass was not seen on previous imaging. She has a plastic biliary stent in place, which is draining adequately. However, given that it has already been in over a couple of months, this stent needs to be exchanged. She has known biliary debris above that. It is possible this could be a malignant stricture as well. The hypodense lesions in the head of the pancreas could be pseudocyst from her chronic pancreatitis or neoplastic process also has to be considered. She has been referred to [facility] for endoscopic ultrasound for this and she has been in contact with Dr. Ohara's office, but has not yet scheduled the appointment. RECOMMENDATIONS: 1. We will plan ERCP today to replace her biliary stent. 2. Recommend following through with the referral for endoscopic ultrasound to rule out neoplastic process in the head of her pancreas. 3. Regarding her pancreatitis, she is advised to avoid all alcohol intake and cocaine use. She has chronic pancreatitis and the CT does show inflammatory changes around the head of the pancreas. Her pancreatic enzymes are normal but given her chronic calcific pancreatitis, these might not increase significantly even in the setting of an acute on chronic flare. 4. MRI of the pancreas might help differentiate between pseudocyst versus evidence of a neoplastic process. She declined MRI during her previous hospital stay, but perhaps will be able to follow through with that tomorrow. Job ID: [id number]
--- NOTE | 2019-10-22 01:35 | OP ---
DATE OF PROCEDURE: 10/21/2019 PROCEDURE PERFORMED: Endoscopic retrograde cholangiopancreatography with plastic biliary stent exchange. PREOPERATIVE DIAGNOSES: Common bile duct stricture and old plastic biliary stent requiring exchange. Also chronic pancreatitis with new pancreatic pseudocyst. DESCRIPTION OF PROCEDURE: Informed consent was obtained from the patient. She was sedated with general anesthesia and placed in the prone position. The endoscope was advanced easily to the second portion of the duodenum. The ampulla was identified and showed signs of the prior sphincterotomy. The old stent was mostly out of the bile duct with just the tip of the stent and the internal flange in place. This was firmly in place and it took a significant amount of traction to pull the stent out with the snare. The previous 11.5-Prydeinig 7 cm stent was removed intact. The sphincterotome was then used to cannulate with a guidewire, and cholangiogram was performed, which showed at least a 3 cm stricture in the distal common bile duct and dilation of the common bile duct above that. The intrahepatic ducts only filled briefly and were unremarkable. A new plastic stent was then placed. An 11.5-Prydeinig 5 cm stent was then placed across the stricture, which fully spans the stricture well with the proximal internal flange well above the stricture. There was good drainage of bile and contrast with stent placement. It was difficult to pass the stent either the end of the duodenoscope. After two attempts, I changed to a second duodenoscope through which I could slide the stent much more easily end of the scope and into the stricture. IMPRESSION: 1. Previous 11.5-Prydeinig 7 cm stent removed intact. There was debris clogging the stent. 2. 3 cm stricture of the distal common bile duct with dilated common bile duct above it and unremarkable intrahepatic ducts. 3. A new 5 cm 11.5-Prydeinig stent was then placed with good drainage of bile and contrast. RECOMMENDATIONS: 1. MRI of the pancreas and biliary tree tomorrow. 2. Follow through with outpatient referral for endoscopic ultrasound. 3. She can likely discharge home tomorrow after the MRI. Job ID: [id number]
[2019-10-22 04:02] LABS: #Lymphocytes 0.5 thou/uL (1.20-3.40); #Monocytes 0.1 thou/uL (0.11-0.59); #Neutrophils 6.2 thou/uL (1.40-6.50); %Basophils 0.5 % (0.0-1.0); %Eosinophils 0.2 % (0.0-10.0); %Lymphocytes 7.3 % (21.0-51.0); %Monocytes 1.2 % (0.0-10.0); %Neutrophils 90.8 % (42.0-75.0); Hemoglobin 9.9 g/dL (12.0-16.0); Mean Corpuscular HGB CONC 32.2 g/dL (32.0-36.0); Mean Corpuscular Hemoglobin 29.7 pg (27.0-31.0); Mean Corpuscular Volume 92.1 fL (78.0-98.0); Mean Platelet Volume 10.9 fL (7.4-10.4); Platelet Count 136 thou/uL (130-400); RBC Distribution Width 12.8 % (11.5-14.5); Red Blood Cell (RBC) Count 3.34 mill/uL (4.20-5.40); White Blood Cell (WBC) Count 6.9 thou/uL (4.8-10.8)
[2019-10-22 04:41] LABS: Thyroid Stimulating Hormone 4.9473 uIU/mL (0.35-4.94)
[2019-10-22 04:42] LABS: ALT (SGPT) 25 U/L (8-55); AST (SGOT) 39 U/L (5-34); Albumin 3.3 g/dL (3.5-5.0); Alkaline Phosphatase 175 U/L (40-110); Anion Gap 14 mmol/L (10-20); BUN (Urea Nitrogen) 23 mg/dL (9.8-20.1); Bilirubin, Direct 0.3 mg/dL (0.1-0.3); Bilirubin, Total 0.6 mg/dL (0.2-1.2); Calc. Creatinine Clearance 47 mL/min (70-130); Calcium 8.9 mg/dL (7.8-10.44); Carbon Dioxide 20 mmol/L (22-29); Chloride 105 mmol/L (98-107); Estimated GFR-MDRD 48; Glucose 461 mg/dL (70-105); Magnesium 1.5 mg/dL (1.6-2.6); Potassium 5.1 mmol/L (3.5-5.1); Protein, Total 6.6 g/dL (6.0-8.3); Sodium 134 mmol/L (136-145)
[2019-10-22 05:05] LABS: Free T4 (Free Thyroxine) 0.78 ng/dL (0.70-1.48)
[2019-10-22] MEDS: Levothyroxine Sodium 75 MCG TAB PO SCH (06:13)
[2019-10-22] MEDS: Insulin Regular 300 UNITS/3 ML VIAL SC PRN ×2 (06:14→11:30)
[2019-10-22] MEDS: Sodium Chloride 0.9% 1,000 ML IV SCH (06:33)
[2019-10-22 07:07] VITALS: TEMP 96.4
[2019-10-22] MEDS: Enoxaparin Sodium 40 MG/0.4 ML SYRINGE SC SCH (10:01)
[2019-10-22] MEDS: Insulin Glargine 25 UNITS in Pre-Filled Syringe 1 EACH SC SCH (10:02)
[2019-10-22] MEDS ORDERED: Dextrose 5% in Water 1,000 ML IV PRN (10:08)
[2019-10-22] MEDS ORDERED: HumaLOG 300 UNITS/3 ML VIAL SC PRN (10:08)
[2019-10-22] MEDS ORDERED: Dextrose 50% Abboject 50 ML SYRINGE SLOW IVP PRN (10:08)
[2019-10-22] MEDS ORDERED: Insulin Regular 300 UNITS/3 ML VIAL SC STA (10:10)
[2019-10-22] MEDS ORDERED: Magnesium 2 GM/50 ML 2 GM in Premix Bag 1 BAG IVPB SCH (10:15)
[2019-10-22 13:53] VITALS: BP 122/87
--- NOTE | 2019-10-22 14:46 | DIS ---
DATE OF ADMISSION: 10/21/2019 DATE OF DISCHARGE: 10/22/2019 DISCHARGE DIAGNOSES: 1. Common bile duct stricture at the level of the head of the pancreas. 2. Chronic pancreatitis. 3. Biliary duct dilatation, status post 5 cm 11.5-Ugandan stent was placed with good drainage of the bile. 4. Common bile duct stricture and old plastic biliary stent replacement. 5. New pancreatic pseudocyst. 6. Hypertension. 7. Chronic obstructive pulmonary disease. 8. Hypothyroidism. 9. Type 2 diabetes mellitus. DISCHARGE MEDICATION: 1. Amitriptyline 50 mg at bedtime. 2. Lisinopril 10 mg daily. 3. Levothyroxine 75 mcg daily. 4. Aspart 6 units t.i.d. 5. Metformin 1000 b.i.d. 6. Zoloft 50 mg daily. 7. Prilosec 20 mg daily. 8. Levemir 55 units b.i.d. 9. Bactrim 400/80 1 tablet twice a day. HOSPITAL COURSE: A 53-year-old female presented with acute on chronic pancreatitis. She had both common bile duct dilatation and history of biliary stent placement. It appears that she did have biliary stent migration causing her abdominal pain. She was supportively managed with IV fluid and analgesic. Stent is exchanged. Following the procedure, MRCP was done, but the report is currently pending. She is referred for outpatient endoscopic ultrasound referral. She is expected to follow up with that. She is stable to be discharged. On the day of discharge, her urine looked quite cloudy as well as smelly, Urine was sent for culture and sensitivity She was given empiric antibiotic. DISCHARGE INSTRUCTIONS: Activity as tolerated. Healthy heart diet. Follow up with primary care physician in one week. Follow up with endoscopy referral as arranged given per the GI. TIME SPENT: Discharge time took over 35 minutes. [I checked on - no urine culture is available to view or review] Job ID: [id number] MTDD
--- NOTE | 2019-10-22 16:43 | MRI ---
MRI OF THE ABDOMEN WITHOUT AND WITH CONTRAST: 10/22/19 COMPARISON: 11/23/[address] abdomen/pelvis 10/20/19. HISTORY: Biliary stricture versus mass. Multiple new pancreatic masses seen on recent CT. TECHNIQUE: Multiplanar and multisequence MRI images were obtained of the abdomen without and with IV contrast. M [employer] MANAGER images were performed with 3D rotation reformats. FINDINGS: The common bile duct is enlarged to 11 mm at the nevin hepatis. The stent seen on CT within the commo n bile duct is difficult to appreciate in the distal common bile duct. Low signal intensity within th e biliary tree likely represents the air seen in the biliary tree on the CT. The pancreatic duct is a gain seen to be dilated. This is seen within the head and tail of the pancreas. There has been interv al development of a multiloculated fluid signal intensity mass in the body of the pancreas measuring approximately 5.6 cm in greatest dimension. This does not definitely communicate with the pancreatic duct. No obvious enhancing solid mass is seen within the pancreas and this mass most likely represent s a pseudocyst. This demonstrates restricted diffusion and low signal on the ADC map which may repres ent proteinaceous debris within the lesion. No focal liver lesions are seen. The kidneys, adrenal gla nds, and spleen are unremarkable. No abdominal adenopathy is seen. There is a filling defect in the g allbladder which may represent a gallstone that has developed in the interval or a bubble of air with in the gallbladder. IMPRESSION: 1. Interval development of multiloculated cystic lesion in the pancreatic body. This does not leigh ve an obvious enhancing component and likely represents a pseudocyst that likely developed from pancr eatitis secondary to chronic pancreatic duct obstruction. There is still enlargement of the pancreati c duct in the tail and also within the head more proximal than the lesion described. 2. Enlargement of the biliary tree with air in the biliary tree as above. 3. Filling defect within the gallbladder may represent a gallstone or air within the gallbladder . POS: EAA
== END 2019-10-22 13:46 | disposition home or self-care (01) | DRG 919 ==
LOC: IMCU/EMU 02:21
PROVIDERS: ADMIT Internal Medicine; ATTEND Internal Medicine
PROC: 0FPB8DZ Removal of Intraluminal Device from Hepatobiliary Duct, Via Natural or Artificial Opening Endoscopic (ICD-10-PCS; principal; 2019-10-21)
PROC: 0F798DZ Dilation of Common Bile Duct with Intraluminal Device, Via Natural or Artificial Opening Endoscopic (ICD-10-PCS; 2019-10-21)
PROC: BF101ZZ Fluoroscopy of Bile Ducts using Low Osmolar Contrast (ICD-10-PCS; 2019-10-21)
DX: T85.520A Displacement of bile duct prosthesis, initial encounter (principal); K85.90 Acute pancreatitis without necrosis or infection, unspecified; K83.1 Obstruction of bile duct; A41.9 Sepsis, unspecified organism; K86.3 Pseudocyst of pancreas; E44.0 Moderate protein-calorie malnutrition; K86.1 Other chronic pancreatitis; I10 Essential (primary) hypertension; J44.9 Chronic obstructive pulmonary disease, unspecified; E03.9 Hypothyroidism, unspecified; E11.22 Type 2 diabetes mellitus with diabetic chronic kidney disease; F14.10 Cocaine abuse, uncomplicated; K21.9 Gastro-esophageal reflux disease without esophagitis; F20.9 Schizophrenia, unspecified; F99 Mental disorder, not otherwise specified; R53.81 Other malaise; T85.79XA Infection and inflammatory reaction due to other internal prosthetic devices, implants and grafts, initial encounter; R62.7 Adult failure to thrive; F10.10 Alcohol abuse, uncomplicated; Y83.8 Other surgical procedures as the cause of abnormal reaction of the patient, or of later complication, without mention of misadventure at the time of the procedure; Z68.20 Body mass index [BMI] 20.0-20.9, adult; Z90.710 Acquired absence of both cervix and uterus; Z87.891 Personal history of nicotine dependence; Z79.4 Long term (current) use of insulin
CPT/HCPCS: 36415; 36416; 74183; 74330; 80048; 80076; 80306; 81001; 82140; 83605; 83690; 83735; 84439; 84443; 85025; 85610; 85730; 87040; J1100; J1815; J2001; J2270; J2405; J2704; J3010; J3475; Q9967

== ENCOUNTER 2019-10-23 18:03 | Observation (INO) | payer MEDICARE, OTHER ==
[2019-10-23] MEDS ORDERED: Aspirin Chewable 81 MG TAB ONE (19:11)
[2019-10-23] MEDS ORDERED: Ketorolac Tromethamine 30 MG/ML VIAL ONE (19:11)
[2019-10-23 20:46] LABS: Troponin I 0.017 ng/mL (< 0.028)
[2019-10-23 21:30] VITALS: BMI 21.2
[2019-10-23] MEDS ORDERED: Famotidine 20 MG TAB PO SCH (22:00)
[2019-10-23] MEDS ORDERED: Acetaminophen/Codeine 30-300mg Tablet PO SCH (22:00)
[2019-10-23] MEDS ORDERED: Gabapentin 100 MG CAP PO PRN (22:14)
[2019-10-23] MEDS ORDERED: hydrALAZINE 20 MG/ML VIAL SLOW IVP PRN (22:16)
[2019-10-23] MEDS ORDERED: Guaifenesin DM 100-10/5 ML UDCUP PO PRN (22:16)
[2019-10-23] MEDS ORDERED: cloNIDine 0.1 MG TAB PO PRN (22:16)
[2019-10-23] MEDS ORDERED: Promethazine HCl 12.5 MG in Sodium Chloride 0.9% 50 ML IVPB PRN (22:16)
[2019-10-23] MEDS ORDERED: Ondansetron PF 4 MG/2 ML Vial IVP PRN (22:16)
[2019-10-23] MEDS ORDERED: Labetalol HCl 100 MG/20 ML VIAL SLOW IVP PRN (22:16)
[2019-10-23] MEDS ORDERED: Acetaminophen 325 MG TAB PO PRN (22:16)
[2019-10-23] MEDS ORDERED: Nitroglycerin 0.4 MG TAB (25 Tab Bottle) SL PRN (22:25)
[2019-10-23] MEDS ORDERED: Dextrose 50% Abboject 50 ML SYRINGE SLOW IVP PRN (22:41)
[2019-10-23] MEDS ORDERED: HumaLOG 300 UNITS/3 ML VIAL SC PRN (22:41)
[2019-10-23] MEDS ORDERED: Dextrose 5% in Water 1,000 ML IV PRN (22:41)
--- NOTE | 2019-10-23 22:43 | PDOC.HHP ---
Hospitalist HPI - History of Present Illness Chest pain History of Present Illness: Patient is a 53 year old female with PMH cocaine abuse, GERD, DM, hypothyroidism who presents as transfer form [facility] for chest pain. She was discharged on 10/21 after being admitted for CBD stricture at level of head of pancreas. A stent was exchanged during that admission and was reported with good drainage after placement. Patient discharged home however reports chest pain persists, substernal intermittent atypical in nature, she reports it is a chronic pain not really acute, however she has a history of drug abuse and is upset that she cannot get strong pain medications because of this and pain not controlled with tylenol. she had a cardiac stent placed a long time ago, and has not had any kind of recent stress test (several year or more). She reports no drug alcohol or tobacco use in last week, UDS was indeed negative. tnI indeterminant, EKG without acute changes, patient admitted for chest pain workup. Hospitalist ROS - Review of Systems Constitutional: denies: fever, chills, sweats, weakness, malaise, other Eyes: denies: pain, vision change, conjunctivae inflammation, eyelid inflammation, redness, other ENT: denies: ear pain, ear discharge, nose pain, nose discharge, nose congestion , mouth pain, mouth swelling, throat pain, throat swelling, other Respiratory: denies: cough, dry, shortness of breath, hemoptysis, SOB with excertion, pleuritic pain, sputum, wheezing, other Cardiovascular: reports: chest pain. denies: palpitations, orthopnea, paroxysmal noc. dyspnea, edema, light headedness, other Gastrointestinal: reports: abdominal pain. denies: nausea, vomiting, diarrhea, constipation, melena, hematochezia, other Genitourinary: denies: dysuria, frequency, incontinence, hematuria, retention, other Musculoskeletal: denies: neck pain, shoulder pain, arm pain, back pain, hand pain, leg pain, foot pain, other Skin: denies: rash, lesions, ashly, bruising, other Neurological: denies: weakness, numbness, incoordination, change in speech, confusion, seizures, other All other systems reviewed; all pertinent +/- noted in HPI/Subj - Medication Medications: Active Medications Generic Name Dose Route Start Last Admin Trade Name Freq PRN Reason Stop Dose Admin Acetaminophen/Codeine Phosphate 1 tab 10/23/19 22:00 10/23/19 22:13 Tylenol #3 PO 10/23/19 23:59 1 tab NOW GRETCHEN Administration Famotidine 20 mg 10/23/19 22:00 10/23/19 22:14 Pepcid PO 10/23/19 23:59 20 mg NOW GRETCHEN Administration Hospitalist History - Past Medical History Other Medical History: cocaine abuse, GERD, DM, hypothyroidism, pancreatitis/biliary strictures - Past Surgical History Other Surgical History: oophorectomy, stent CBD stent 08/2019 hysterectomy - Family History Family History: reports: no pertinent history - Social History Alcohol: reports: None (quit 3 months ago, previously heavy use) Drugs: reports: cocaine Other Social History: reports she has quit all substances and does not drink or smoke x 1 week - Exam General Appearance: NAD, awake alert Eye: PERRL, anicteric sclera ENT: normocephalic atraumatic, no oropharyngeal lesions, moist mucosa Neck: supple, symmetric, no JVD, no thyromegaly, no lymphadenopathy, no carotid bruit Heart: RRR, no murmur, no gallops, no rubs, normal peripheral pulses Respiratory: CTAB, no wheezes, no rales, no ronchi, normal chest expansion, no tachypnea, normal percussion Gastrointestinal: soft, non-tender, non-distended, normal bowel sounds, no palpable masses, no hepatomegaly, no splenomegaly, no bruit Extremities: no cyanosis, no clubbing, no edema Skin: normal turgor, no lesions, no rashes Neurological: cranial nerve grossly intact, normal sensation to touch, no weakness, no focal deficits, no new deficit Musculoskeletal: normal tone, normal strength, no muscle wasting Psychiatric: normal affect, normal behavior, A&O x 3 Hospitalist Results - Labs Lab results: Troponin I 0.017 ng/mL (< 0.028) 10/23/19 20:04 Additional comment: ekg, labs reviewed Hospitalist H&P A/P - Plan Plan: Patient is a 53 year old female with PMH cocaine abuse, GERD, DM, hypothyroidism who presents as transfer form [facility] for chest pain. # chest pain - patient has history of cardiac stent she reports placed a long time ago, has not had stress test or cardiology workup in last few years, troponin I indeterminate range. - patient actually reports this is a chronic pain and if cardiac workup negative , pain may more relate to one of the GI diagnoses below - admit to telemetry, ASA, echo, stress test ordered - trend troponins - give short course norco PRN <24 hours for acute pain however patient has strong drug abuse with use of crack cocaine within last 1-2 weeks, and would avoid prolonged administration if possible - will start gabapentin to perhaps help reduce chronic pain # CBD blockage likely due to pancreatic pseudocyst w/ recently exchanged stent - reported draining after, check LFTs in AM, needs outpatient GI # recurrent pancreatitis w pseudocysts - treat as above, outpatient GI and alcohol cessation recommended # history of cholangitis - noted, no fever # insulin dependant DM - resume long acting insulin at half dose while NPO tomorrow for stress test - recent A1C 9.0 - SSI, hold metformin # schizophrenia, psychiatric disorder - resume home meds # history of drug abuse - reports she has quit all substances and does not drink or smoke x 1 week, UDS negative. used crack cocaine 1-2 weeks ago. # hypothyroidism - continue synthroid # HTN - PRNs in place, resume home meds as appropriate # DVT ppx # GI ppx Full code
[2019-10-23 23:28] LABS: Troponin I 0.027 ng/mL (< 0.028)
[2019-10-24] MEDS: Levothyroxine Sodium 75 MCG TAB PO SCH (03:49)
[2019-10-24] MEDS: HYDROcodone/Acetaminophen 5/325 mg Tablet PO PRN ×2 (03:49→15:45)
[2019-10-24 04:46] LABS: #Eosinphils 0.1 thou/uL (0.0-0.7); #Lymphocytes 1.3 thou/uL (1.20-3.40); #Monocytes 0.5 thou/uL (0.11-0.59); #Neutrophils 4.9 thou/uL (1.40-6.50); %Basophils 0.2 % (0.0-1.0); %Lymphocytes 19.5 % (21.0-51.0); %Neutrophils 72.3 % (42.0-75.0); Hemoglobin 9.7 g/dL (12.0-16.0); Mean Corpuscular HGB CONC 31.5 g/dL (32.0-36.0); Mean Corpuscular Hemoglobin 28.6 pg (27.0-31.0); Mean Corpuscular Volume 90.9 fL (78.0-98.0); Mean Platelet Volume 9.9 fL (7.4-10.4); Platelet Count 134 thou/uL (130-400); RBC Distribution Width 12.7 % (11.5-14.5); Red Blood Cell (RBC) Count 3.38 mill/uL (4.20-5.40); White Blood Cell (WBC) Count 6.8 thou/uL (4.8-10.8)
[2019-10-24 04:52] LABS: Prothrombin Time 12.9 sec (12.0-14.7)
[2019-10-24 05:15] LABS: ALT (SGPT) 15 U/L (8-55); AST (SGOT) 12 U/L (5-34); Albumin 3.3 g/dL (3.5-5.0); Alkaline Phosphatase 141 U/L (40-110); Anion Gap 10 mmol/L (10-20); BUN (Urea Nitrogen) 9 mg/dL (9.8-20.1); Bilirubin, Direct 0.2 mg/dL (0.1-0.3); Bilirubin, Total 0.3 mg/dL (0.2-1.2); Calc. Creatinine Clearance 75 mL/min (70-130); Calcium 8.8 mg/dL (7.8-10.44); Carbon Dioxide 30 mmol/L (22-29); Chloride 101 mmol/L (98-107); Estimated GFR-MDRD 80; Glucose 290 mg/dL (70-105); Magnesium 1.4 mg/dL (1.6-2.6); Potassium 3.2 mmol/L (3.5-5.1); Protein, Total 6.7 g/dL (6.0-8.3); Sodium 138 mmol/L (136-145)
[2019-10-24 05:18] LABS: Troponin I 0.018 ng/mL (< 0.028)
[2019-10-24] MEDS ORDERED: Acetaminophen/Codeine 30-300mg Tablet PO SCH (06:45)
[2019-10-24] MEDS ORDERED: Potassium Chloride 20 MEQ TAB PO SCH (08:30)
[2019-10-24] MEDS ORDERED: Magnesium Sulfate 4 GM in Sodium Chloride 0.9% 250 ML 250 ML IVPB SCH (08:30)
[2019-10-24] MEDS ORDERED: Insulin Glargine 30 UNITS in Pre-Filled Syringe 1 EACH SC SCH (09:00)
[2019-10-24] MEDS ORDERED: INSULIN DETEMIR 30 UNIT SQ SCH (09:00)
[2019-10-24] MEDS: Polyethylene Glycol 3350 17 GM Packet PO SCH (09:11)
[2019-10-24] MEDS: Sulfameth/Trimethoprim SS 400-80MG TAB PO SCH ×2 (09:11→21:15)
[2019-10-24] MEDS: Lisinopril 10 MG TAB PO SCH (09:12)
[2019-10-24] MEDS: Aspirin Chewable 81 MG TAB PO SCH (09:12)
[2019-10-24] MEDS: Enoxaparin Sodium 30 MG/0.3 ML SYRINGE SC SCH (09:12)
[2019-10-24] MEDS ORDERED: Regadenoson 0.4 MG/5 ML SYRINGE ONE (09:14)
[2019-10-24] MEDS: Insulin Glargine 15 UNITS in Pre-Filled Syringe 1 EACH SC SCH ×2 (09:15→21:11)
[2019-10-24] MEDS: Gabapentin 100 MG CAP PO SCH ×2 (09:15→21:14)
[2019-10-24 10:02] LABS: SARS-CoV-2 MS2 Positive; SARS-CoV-2 N Gene Negative; SARS-CoV-2 S Gene Negative; SARS-CoV-2 orf1ab Negative
[2019-10-24 10:47] LABS: Troponin I 0.014 ng/mL (< 0.028)
[2019-10-24] MEDS: Potassium Chloride 20 MEQ TAB PO SCH ×2 (15:46→18:46)
--- NOTE | 2019-10-24 15:52 | CON ---
DATE OF CONSULTATION: 10/24/2019 REASON FOR CONSULTATION: Abdominal and chest pain. HISTORY OF PRESENT ILLNESS: Ms. Roxanne Mckenna is a 53-year-old woman with history of chronic pancreatitis and probable pseudocyst, who came to the hospital complaining of upper epigastric pain and pain going into her chest. She feels fine now. The patient has a long history of gastrointestinal problems as outlined above outlined by Gastroenterology. The patient has a long history of cocaine addiction as well as diabetes. She said she has been taking some of the crack cocaine to help her control the abdominal pain. She tells me that she said she is going to stop because it is not helping anymore. She said the last time she used crack cocaine was over a week ago. She also quit smoking. The patient states that she is certain now that she will stop using the crack cocaine and quit smoking. The patient states she has had some cardiac tests in the past. She thinks that may have found something abnormal, but she does not know when, she had those done in [place]. She has never have a heart catheterization and never had coronary stents. ALLERGIES: TO CEPHALEXIN. REVIEW OF SYSTEMS: CONSTITUTIONAL: No significant weight gain. No fever. VISION: No changes. HEARING: No changes. PULMONARY: No cough or wheezing. GASTROINTESTINAL: As outlined above. SKIN: No rashes. NEUROLOGIC: No unilateral weakness or numbness. PSYCHIATRIC: No unusual depression or anxiety. PHYSICAL EXAMINATION: GENERAL: This is a thin woman, 5 feet 9 inches tall, 143 pounds. HEENT: Eyes, sclerae nonicteric. Mouth, mucous membranes moist. NECK: Supple. No lymphadenopathy. LUNGS: Clear. CARDIAC: Normal S1 and normal S2. ABDOMEN: She is tender. EXTREMITIES: No clubbing or cyanosis. She has no edema. She has good peripheral pulses. PERTINENT LABORATORY DATA: Potassium is 3.2. INR is 1. Hemoglobin is 9.7. COVID test is negative. EKG did not show any ischemia. Troponin levels are still in the negative range just below the indeterminate range, the peak of 0.027. ASSESSMENT: 1. Recurrent abdominal pain, likely due to pancreatitis. 2. Substance addiction. 3. Diabetes. 4. Smoking. 5. Chest pain atypical for angina. PLAN: 1. Stress testing. 2. The patient states she will stop using cocaine and tobacco. Job ID: [id number]
--- NOTE | 2019-10-24 19:11 | NM ---
CARDIAC SPECT: CLINICAL HISTORY: 53-year-old female with chest pain, coronary artery disease, stent, hypertension, diabetes, and smoke r. TECHNIQUE: A myocardial perfusion scan was performed using the single isotope one day protocol with technetium-9 9m sestamibi. 10 mCi were injected intravenously for the rest exam followed by 27 mCi for the stress exam. Pharmacologic stress with Lexiscan was monitored and interpreted by Dr. Mcintosh. FINDINGS: Homogeneous tracer distribution is seen in the myocardial segments on stress and rest images without fixed or reversible defects. GATED SPECT LVEF: 72%. WALL MOTION EXAM: Normal. IMPRESSION: Normal myocardial perfusion scan. POS: SONIAA
[2019-10-24] MEDS ORDERED: HumaLOG 300 UNITS/3 ML VIAL SC PRN (19:51)
[2019-10-24] MEDS ORDERED: Amitriptyline HCl 25 MG TAB PO SCH (21:00)
[2019-10-24] MEDS ORDERED: Mag-Al 1200 mg/1200 mg/30 ML UDCUP PO PRN (23:40)
[2019-10-24] MEDS ORDERED: Calcium Carbonate 500 MG ChewTAB PO PRN (23:40)
[2019-10-25] MEDS: Levothyroxine Sodium 75 MCG TAB PO SCH (06:16)
[2019-10-25 06:32] LABS: ALT (SGPT) 28 U/L (8-55); AST (SGOT) 48 U/L (5-34); Albumin 3.5 g/dL (3.5-5.0); Alkaline Phosphatase 224 U/L (40-110); Anion Gap 14 mmol/L (10-20); BUN (Urea Nitrogen) 11 mg/dL (9.8-20.1); Bilirubin, Total 0.7 mg/dL (0.2-1.2); Calc. Creatinine Clearance 88 mL/min (70-130); Calcium 9.4 mg/dL (7.8-10.44); Carbon Dioxide 25 mmol/L (22-29); Chloride 104 mmol/L (98-107); Estimated GFR-MDRD Greater than 90; Globulin 3.7 g/dL (2.4-3.5); Glucose 111 mg/dL (70-105); Magnesium 1.9 mg/dL (1.6-2.6); Potassium 3.9 mmol/L (3.5-5.1); Protein, Total 7.2 g/dL (6.0-8.3); Sodium 139 mmol/L (136-145)
--- NOTE | 2019-10-25 07:13 | PDOC.HOSPP ---
- Subjective Encounter Date: 10/24/19 Encounter Time: 09:00 Subjective: Patient seen and examined for CP. No significant change in CP. No other complaints. No overnight events - Objective Vital Signs & Weight: Vital Signs (12 hours) Temp Pulse Resp BP Pulse Ox 10/25/19 05:40 98.4 F 93 14 126/76 97 10/24/19 19:25 99 F 97 17 124/65 95 Weight Admit Weight 143 lb 8 oz Weight 143 lb 8 oz I&O: 10/24/19 10/25/19 10/26/19 06:59 06:59 06:59 Intake Total 450 1230 Balance 450 1230 Result Diagrams: 10/24/19 04:24 10/25/19 05:41 Additional Labs: Accuchecks 10/24/19 10/24/19 19:34 17:09 POC Glucose 312 H 211 H EKG Reviewed by me: Yes (Tele SR) Hospitalist ROS - Review of Systems Respiratory: denies: cough, dry, shortness of breath, hemoptysis, SOB with excertion, pleuritic pain, sputum, wheezing, other Gastrointestinal: denies: nausea, vomiting, abdominal pain, diarrhea, constipation, melena, hematochezia, other - Medication Medications: Active Medications Generic Name Dose Route Start Last Admin Trade Name Freq PRN Reason Stop Dose Admin Al Hydroxide/Mg Hydroxide 30 ml 10/24/19 23:40 10/24/19 23:46 Maalox PO 30 ml Q4H PRN Administration Indigestion Amitriptyline HCl 50 mg 10/24/19 21:00 10/24/19 21:14 Elavil PO 50 mg HS GRETCHEN Administration Aspirin 81 mg 10/24/19 09:00 10/24/19 09:12 Aspirin Chewable PO 81 mg DAILY GRETCHEN Administration Enoxaparin Sodium 30 mg 10/24/19 09:00 10/24/19 09:12 Lovenox SC 30 mg 0900 GRETCHEN Administration Gabapentin 200 mg 10/23/19 22:16 10/24/19 21:14 Neurontin PO 200 mg BID GRETCHEN Administration Insulin Glargine 15 units/ 0.15 mls @ 0 mls/hr 10/24/19 09:00 10/24/19 21:11 Miscellaneous Medication SC 0.15 mls BID GRETCHEN Administration Levothyroxine Sodium 75 mcg 10/24/19 06:00 10/25/19 06:16 Synthroid PO 75 mcg 0600 GRETCHEN Administration Lisinopril 5 mg 10/24/19 09:00 10/24/19 09:12 Zestril PO 5 mg DAILY GRETCHEN Administration Pantoprazole Sodium 40 mg 10/24/19 09:00 10/24/19 09:16 Protonix PO 40 mg DAILY GRETCHEN Administration Polyethylene Glycol 17 gm 10/24/19 09:00 10/24/19 09:11 Miralax PO 17 gm DAILY GRETCHEN Administration Potassium Chloride 20 meq 10/24/19 12:00 10/24/19 18:46 K-Dur PO 20 meq TID-WM GRETCHEN Administration Sertraline HCl 50 mg 10/24/19 21:00 10/24/19 21:13 Zoloft PO 50 mg QPM GRETCHEN Administration Sodium Chloride 10 ml 10/24/19 09:00 10/24/19 21:11 Flush - Normal Saline IVF 10 ml Q12HR GRETCHEN Administration Trimethoprim/Sulfamethoxazole 1 tab 10/24/19 09:00 10/24/19 21:15 Bactrim Ss PO 1 tab BID GRETCHEN Administration - Exam General Appearance: ill appearing General - other findings: mild distress due to CP Heart: RRR, no murmur, no gallops, no rubs, normal peripheral pulses Respiratory: no wheezes, no rales, no ronchi, normal chest expansion Gastrointestinal: soft, normal bowel sounds, no guarding, no rigidity Gastrointestinal - other findings: mild tenderness in epigastric region Extremities: no cyanosis, no clubbing, no edema Psychiatric: normal affect, A&O x 3 Hosp A/P - Plan DVT proph w/SCDs CP DM Hypothyroidism Schizophrenia HTN PLAN: Pt continues to have CP - will hold stress test - consult Cardio Cont ASA Drug screen negative Cont sliding scale Reduce Lantus dose Cont other meds as above NPO
[2019-10-25 07:34] VITALS: TEMP 98.3
[2019-10-25] MEDS: Polyethylene Glycol 3350 17 GM Packet PO SCH (09:37)
[2019-10-25] MEDS: Potassium Chloride 20 MEQ TAB PO SCH ×2 (09:37→11:07)
[2019-10-25] MEDS: Lisinopril 10 MG TAB PO SCH (09:38)
[2019-10-25] MEDS: Gabapentin 100 MG CAP PO SCH (09:38)
[2019-10-25] MEDS: Aspirin Chewable 81 MG TAB PO SCH (09:38)
[2019-10-25] MEDS: Sulfameth/Trimethoprim SS 400-80MG TAB PO SCH (09:38)
[2019-10-25] MEDS: Insulin Glargine 15 UNITS in Pre-Filled Syringe 1 EACH SC SCH (09:40)
[2019-10-25] MEDS: Enoxaparin Sodium 30 MG/0.3 ML SYRINGE SC SCH (09:47)
[2019-10-25 10:44] LABS: Bacteria/HPF None Seen HPF (None Seen); Bilirubin Negative (Negative); Blood, Urine Negative (Negative); Clarity Clear (Clear); Glucose, Urine (Dipstick) Greater than 1000 mg/dL (Negative); Leukocyte Negative Leu/uL (Negative); Nitrite Negative (Negative); Protein, Urine (Dipstick) Negative (Neg-Trace); RBC/HPF 0-3 HPF (0-3); WBC/HPF 0-3 HPF (0-3)
--- NOTE | 2019-10-25 12:05 | DIS ---
DATE OF ADMISSION: 10/23/2019 DATE OF DISCHARGE: 10/25/2019 DISCHARGE DISPOSITION: Home. FOLLOWUP: 1. Follow up with primary care physician, Dr. Rizo later this week as scheduled. 2. Follow up with Dr. Saez as scheduled. ALLERGIES: THE PATIENT IS ALLERGIC TO KEFLEX. DISCHARGE MEDICATIONS: Same as admission medication. The patient was advised to follow up on the echocardiogram report. BRIEF HOSPITAL COURSE: The patient is a 53-year-old female with recent common bile duct stricture, status post stent placement, presented to the emergency room with chest/epigastric discomfort. The pain is chronic in nature that got somewhat worse. Please refer to the history and physical dictated by Dr. Lisa for further details. The patient was admitted to the hospital with a diagnosis of chest discomfort, rule out acute coronary syndrome. Due to persistent chest discomfort, she was evaluated by Cardiology. She underwent a stress test per Cardiology that showed ejection fraction of 72% with no wall motion abnormality. There was no perfusion defect. Echocardiogram has been done, report is pending at this time. She continues to have similar discomfort that is probably secondary to chronic pancreatitis with pancreatic pseudocyst and common bile duct stricture. No changes in her medications were made. She appears stable for discharge. FINAL DIAGNOSES: 1. Atypical chest discomfort, acute coronary syndrome ruled out. 2. Diabetes mellitus. 3. Hypertension. 4. Common bile duct stricture with pseudocyst, status post recent stent placement. 5. Chronic pancreatitis. 6. Chronic obstructive pulmonary disease. 7. Hypothyroidism. 8. History of polysubstance abuse. The patient understands the above plan of care. Job ID: [id number]
[2019-10-25 12:18] VITALS: BP 125/83
--- NOTE | 2019-10-26 16:17 | EKG ---
Test Reason : Blood Pressure : / mmHG Vent. Rate : 076 BPM Atrial Rate : 076 BPM P-R Int : 110 ms QRS Dur : 084 ms QT Int : 414 ms P-R-T Axes : 081 038 038 degrees QTc Int : 465 ms Sinus rhythm with short OR Otherwise normal ECG Confirmed by PRESTON FLOREZ DO ([id number]), scientific editor LIZA SHIRLEY ([id number]) on 10/26/2019 4:16:51 PM Referred By: Confirmed By:PRESTON FLOREZ DO
== END 2019-10-25 12:39 | disposition home or self-care (01) ==
LOC: ERS 18:03 → 2NO 21:04 → 2SW 10-24 00:04
PROVIDERS: ADMIT Internal Medicine; ATTEND Internal Medicine
DX: R07.89 Other chest pain (principal); E11.9 Type 2 diabetes mellitus without complications; I10 Essential (primary) hypertension; K83.1 Obstruction of bile duct; K86.1 Other chronic pancreatitis; J44.9 Chronic obstructive pulmonary disease, unspecified; E03.9 Hypothyroidism, unspecified; F14.11 Cocaine abuse, in remission; K21.9 Gastro-esophageal reflux disease without esophagitis; F20.9 Schizophrenia, unspecified; M19.90 Unspecified osteoarthritis, unspecified site; F32.9 Major depressive disorder, single episode, unspecified; R10.13 Epigastric pain; Z87.891 Personal history of nicotine dependence; Z20.828 Contact with and (suspected) exposure to other viral communicable diseases; Z79.4 Long term (current) use of insulin; Z79.899 Other long term (current) drug therapy; Z88.1 Allergy status to other antibiotic agents
CPT/HCPCS: 78452; 80048; 80053; 80076; 81001; 82962 ×2; 83690; 83735 ×2; 84484 ×3; 85025; 85610; 93005; 93017; 93306; 96374; 99285; A9500; G0378 ×4; U0003; 36415; 36416; 87635; J1650; J1815; J1885; J2785; J3475; J7050

== ENCOUNTER 2022-01-20 10:07 | Outpatient (CLI) | payer MEDICAID, OTHER | END 2022-01-20 10:08 | disposition home or self-care (01) | LOC: BICMAMMO 10:07 | PROVIDERS: ATTEND Family Medicine | DX: Z12.31 Encounter for screening mammogram for malignant neoplasm of breast (principal); Z85.89 Personal history of malignant neoplasm of other organs and systems | CPT/HCPCS: 77067 ==

== ENCOUNTER 2023-11-01 20:51 | Inpatient (IN) | payer MEDICARE, MEDICAID ==
[2023-11-01 21:12] LABS: #Basophils 0.05 10x3/uL (0.0-0.2); %Basophils 0.7 % (0.0-1.0); %Eosinophils 1.7 % (0.0-10.0); %Lymphocytes 24.4 % (21.0-51.0); %Monocytes 10.2 % (0.0-10.0); %Neutrophils 62.6 % (42.0-75.0); Hematocrit 35.2 % (36.0-47.0); Hemoglobin 12.3 g/dL (12.0-16.0); Mean Corpuscular HGB CONC 34.9 g/dL (32.0-36.0); Mean Corpuscular Hemoglobin 30.6 pg (27.0-31.0); Mean Corpuscular Volume 87.6 fL (78.0-98.0); Mean Platelet Volume 12.5 fL (7.4-10.4); Platelet Count 141 10x3/uL (130-400); Red Blood Cell (RBC) Count 4.02 mill/uL (4.20-5.40)
[2023-11-01 21:29] LABS: ALT (SGPT) 24 U/L (8-55); AST (SGOT) 20 U/L (5-34); Albumin 3.5 g/dL (3.5-5.0); Alkaline Phosphatase 107 U/L (40-110); Anion Gap 16 mmol/L (10-20); BUN (Urea Nitrogen) 27 mg/dL (9.8-20.1); Bilirubin, Total 0.3 mg/dL (0.2-1.2); Calc. Creatinine Clearance 0 mL/min (70-130); Calcium 9.2 mg/dL (7.8-10.44); Carbon Dioxide 20 mmol/L (22-29); Chloride 102 mmol/L (98-107); Estimated GFR 40; Globulin 3.4 g/dL (2.4-3.5); Glucose 314 mg/dL (70-105); Potassium 3.9 mmol/L (3.5-5.1); Protein, Total 6.9 g/dL (6.0-8.3); Sodium 134 mmol/L (136-145)
[2023-11-01 21:32] LABS: Troponin I 0.014 ng/mL (< 0.028)
[2023-11-01] MEDS ORDERED: Acetaminophen 650 MG Suppository ONE (21:59)
[2023-11-01 22:18] LABS: Influenza A by NAA Not Detected (NotDetected); Influenza B by NAA Not Detected (NotDetected); SARS-CoV-2 NAA Rapid Test Not Detected (NotDetected)
[2023-11-01] MEDS ORDERED: Sodium Chloride 0.9% 100 ML ONE (22:38)
[2023-11-01] MEDS ORDERED: Ketorolac Tromethamine 30 MG (1 mL) VIAL ONE (22:38)
[2023-11-01] MEDS ORDERED: Vancomycin 1 GM/200 ML (FROZEN) BAG ONE (22:38)
[2023-11-01] MEDS ORDERED: Piperacillin/Tazobactam 4.5 GM VIAL ONE (22:38)
[2023-11-02 01:17] LABS: Lactic Acid 3.6 mmol/L (0.5-2.2)
[2023-11-02] MEDS ORDERED: Dextrose 50% Abboject 50 ML SYRINGE SLOW IVP PRN (03:17)
[2023-11-02] MEDS ORDERED: Acetaminophen 650 MG Suppository PR PRN (03:17)
[2023-11-02] MEDS ORDERED: Dextrose 5% in Water 1,000 ML IV PRN (03:17)
[2023-11-02] MEDS ORDERED: Ondansetron PF 4 MG/2 ML Vial IVP PRN (03:17)
[2023-11-02] MEDS ORDERED: Acetaminophen 325 MG TAB PO PRN (03:17)
[2023-11-02] MEDS ORDERED: Ondansetron ODT 4 MG TAB PO PRN (03:17)
[2023-11-02] MEDS ORDERED: Glucagon 1 MG/ML KIT IM PRN (03:17)
[2023-11-02 04:05] LABS: Bilirubin Negative (Negative); Blood, Urine Negative (Negative); CAUTI Indications for Culture < 2yrs of age; Clarity Clear (Clear); Glucose, Urine (Dipstick) Greater than 1000 mg/dL (Negative); Ketone, Urine Negative (Negative); Leukocyte Negative Leu/uL (Negative); Nitrite Negative (Negative); Protein, Urine (Dipstick) Negative (Neg-Trace); RBC/HPF None Seen HPF (0-3); Specific Gravity, Urine 1.009 (1.002-1.036); Squamous Epithelial 0-3 HPF (0-3); Urobilinogen Normal mg/dL (Less than 2); WBC/HPF 0-3 HPF (0-3); pH, Urine 5.5 (5.0-9.0)
[2023-11-02 04:07] LABS: Bacteria/HPF 1+ HPF (None Seen)
[2023-11-02 04:08] LABS: Urine Culture Reflex Yes Yes
[2023-11-02 05:59] LABS: Lactic Acid 2.7 mmol/L (0.5-2.2)
[2023-11-02 06:02] LABS: Anion Gap 14 mmol/L (10-20); BUN (Urea Nitrogen) 21 mg/dL (9.8-20.1); Calc. Creatinine Clearance 0 mL/min (70-130); Calcium 8.1 mg/dL (7.8-10.44); Carbon Dioxide 18 mmol/L (22-29); Chloride 112 mmol/L (98-107); Estimated GFR 52; Glucose 163 mg/dL (70-105); Potassium 3.5 mmol/L (3.5-5.1); Sodium 140 mmol/L (136-145)
[2023-11-02] MEDS: Sodium Chloride 0.9% 1,000 ML IV SCH (06:43)
[2023-11-02] MEDS ORDERED: LevoFLOXacin 750 mg/D5W 750 MG in Premix 1 BAG IVPB SCH (08:00)
[2023-11-02 08:17] LABS: #Basophils 0.06 10x3/uL (0.0-0.2); %Basophils 0.8 % (0.0-1.0); %Eosinophils 2.6 % (0.0-10.0); %Lymphocytes 34.4 % (21.0-51.0); %Monocytes 13.3 % (0.0-10.0); %Neutrophils 48.4 % (42.0-75.0); Hematocrit 36.6 % (36.0-47.0); Mean Corpuscular HGB CONC 35.5 g/dL (32.0-36.0); Mean Corpuscular Hemoglobin 30.5 pg (27.0-31.0); Mean Corpuscular Volume 85.9 fL (78.0-98.0); Mean Platelet Volume 12.4 fL (7.4-10.4); Platelet Count 134 10x3/uL (130-400); RBC Distribution Width 13.2 % (11.5-14.5); Red Blood Cell (RBC) Count 4.26 mill/uL (4.20-5.40)
[2023-11-02 08:29] LABS: Lactic Acid 3.1 mmol/L (0.5-2.2)
[2023-11-02] MEDS ORDERED: Vancomycin (BATCH) 1.5 GM in Premix 1 BAG IVPB SCH (09:00)
[2023-11-02] MEDS: Meropenem 1 GM in Sodium Chloride 0.9% 100 ML IVPB SCH ×2 (09:00→16:58)
[2023-11-02 09:33] LABS: Hemoglobin A1c Greater than 14.0 % (4.0-6.0)
[2023-11-02] MEDS: HumaLOG 300 UNITS/3 ML VIAL SC PRN ×2 (12:58→19:56)
[2023-11-02] MEDS ORDERED: Meropenem 1 GM in Sodium Chloride 0.9% 100 ML IVPB SCH (14:00)
[2023-11-02 15:30] VITALS: BMI 16.5
[2023-11-02] MEDS: Nicotine 14 MG PATCH TD SCH (16:58)
[2023-11-02 17:24] LABS: Glucose 578 mg/dL (70-105)
[2023-11-02] MEDS: Insulin Glargine 30 UNITS/0.3 ML VIAL SC SCH (19:57)
[2023-11-02] MEDS: Vancomycin 1 GM in Premix 1 BAG IVPB SCH (22:47)
[2023-11-03 05:55] LABS: #Basophils 0.06 10x3/uL (0.0-0.2); %Basophils 0.9 % (0.0-1.0); %Lymphocytes 28.8 % (21.0-51.0); %Monocytes 6.4 % (0.0-10.0); Hematocrit 38.1 % (36.0-47.0); Hemoglobin 13.3 g/dL (12.0-16.0); Mean Corpuscular HGB CONC 34.9 g/dL (32.0-36.0); Mean Corpuscular Hemoglobin 29.6 pg (27.0-31.0); Mean Corpuscular Volume 84.9 fL (78.0-98.0); Mean Platelet Volume 12.6 fL (7.4-10.4); Platelet Count 155 10x3/uL (130-400); RBC Distribution Width 13.3 % (11.5-14.5); Red Blood Cell (RBC) Count 4.49 mill/uL (4.20-5.40)
[2023-11-03] MEDS: Levothyroxine Sodium 75 MCG TAB PO SCH (06:02)
[2023-11-03 06:10] LABS: Vancomycin, Random 4.2 ug/mL (See Comment)
[2023-11-03 06:26] LABS: Anion Gap 15 mmol/L (10-20); BUN (Urea Nitrogen) 20 mg/dL (9.8-20.1); Calc. Creatinine Clearance 51 mL/min (70-130); Calcium 9.7 mg/dL (7.8-10.44); Carbon Dioxide 23 mmol/L (22-29); Chloride 105 mmol/L (98-107); Estimated GFR 68; Glucose 145 mg/dL (70-105); Potassium 3.9 mmol/L (3.5-5.1); Sodium 139 mmol/L (136-145)
[2023-11-03] MEDS ORDERED: Insulin Glargine 30 UNITS/0.3 ML VIAL SC SCH (09:00)
[2023-11-03 09:09] LABS: Free T4 (Free Thyroxine) 0.69 ng/dL (0.70-1.48)
[2023-11-03] MEDS: Pantoprazole DR 40 MG TAB PO SCH (09:12)
[2023-11-03 12:11] VITALS: BMI 16.5
[2023-11-03] MEDS: Sodium Chloride 0.9% 1,000 ML IV SCH (23:30)
[2023-11-04 05:10] LABS: #Basophils 0.05 10x3/uL (0.0-0.2); %Basophils 0.7 % (0.0-1.0); %Eosinophils 1.9 % (0.0-10.0); %Lymphocytes 22.4 % (21.0-51.0); %Monocytes 6.5 % (0.0-10.0); %Neutrophils 67.9 % (42.0-75.0); Hematocrit 34.5 % (36.0-47.0); Mean Corpuscular HGB CONC 34.8 g/dL (32.0-36.0); Mean Corpuscular Hemoglobin 30.4 pg (27.0-31.0); Mean Corpuscular Volume 87.3 fL (78.0-98.0); Mean Platelet Volume 12.4 fL (7.4-10.4); Platelet Count 165 10x3/uL (130-400); RBC Distribution Width 13.4 % (11.5-14.5); Red Blood Cell (RBC) Count 3.95 mill/uL (4.20-5.40)
[2023-11-04 05:28] LABS: Anion Gap 15 mmol/L (10-20); BUN (Urea Nitrogen) 19 mg/dL (9.8-20.1); Calc. Creatinine Clearance 47 mL/min (70-130); Calcium 9.5 mg/dL (7.8-10.44); Carbon Dioxide 26 mmol/L (22-29); Chloride 103 mmol/L (98-107); Estimated GFR 61; Glucose 178 mg/dL (70-105); Potassium 3.6 mmol/L (3.5-5.1); Sodium 140 mmol/L (136-145)
[2023-11-04] MEDS: Lisinopril 2.5 MG TAB PO SCH (09:12)
[2023-11-04 15:39] VITALS: BP 160/97; TEMP 98
== END 2023-11-04 17:45 | disposition home or self-care (01) | DRG 871 ==
LOC: ERS 20:51 → ERHOLD 23:39 → MSONC 11-02 07:40
PROVIDERS: ADMIT Student in an Organized Health Care Education/Training Program; ATTEND Family Medicine
DX: A41.9 Sepsis, unspecified organism (principal); G93.41 Metabolic encephalopathy; J18.9 Pneumonia, unspecified organism; N17.9 Acute kidney failure, unspecified; Z68.1 Body mass index [BMI] 19.9 or less, adult; E11.9 Type 2 diabetes mellitus without complications; E03.9 Hypothyroidism, unspecified; F10.90 Alcohol use, unspecified, uncomplicated; F17.210 Nicotine dependence, cigarettes, uncomplicated; I10 Essential (primary) hypertension; E78.5 Hyperlipidemia, unspecified; R63.6 Underweight; Z88.1 Allergy status to other antibiotic agents; Z79.4 Long term (current) use of insulin; Z79.890 Hormone replacement therapy; Z79.899 Other long term (current) drug therapy; Z90.5 Acquired absence of kidney; Z90.49 Acquired absence of other specified parts of digestive tract
CPT/HCPCS: 36415; 36416; 71045; 80048; 80053; 80202; 83036; 83605; 83880; 84145; 84439; 84443; 84481; 84484; 85025; 87040; 87081; 87086; 93005; 96374; 96375; J1815; J1885; J2185; J2543; J3370-JW; J3490; J7050

== ENCOUNTER 2024-03-08 17:11 | Inpatient (IN) | payer MEDICARE, MEDICAID ==
[2024-03-08 18:17] LABS: Actual Bicarbonate (HCO3v) 27.3 mEq/L (22-28); Analyzer IN Cardio ER; Base Excess -0.5 mEq/L (-2.0 to +3.0); Calcium, Ionized (venous) 1.18 mmol/L (1.16-1.32); Chloride (VBG) 92 mmol/L (98-106); Hematocrit-VBG 40 % (36.0-47.0); Hemoglobin (Hb) 13.7 g/dL (11.7-16.0); Potassium (VBG) 4.53 mmol/L (3.70-5.30); Sodium 130 mmol/L (133-146); pH (venous) 7.286 (7.32-7.43)
[2024-03-08 18:20] LABS: #Basophils 0.06 10x3/uL (0.0-0.2); %Basophils 0.8 % (0.0-1.0); %Eosinophils 0.8 % (0.0-10.0); %Monocytes 3.8 % (0.0-10.0); %Neutrophils 70.9 % (42.0-75.0); Hematocrit 34.7 % (36.0-47.0); Hemoglobin 12.4 g/dL (12.0-16.0); Mean Corpuscular HGB CONC 35.7 g/dL (32.0-36.0); Mean Corpuscular Hemoglobin 30.2 pg (27.0-31.0); Mean Corpuscular Volume 84.6 fL (78.0-98.0); Mean Platelet Volume 12.3 fL (7.4-10.4); Platelet Count 207 10x3/uL (130-400); RBC Distribution Width 12.6 % (11.5-14.5)
[2024-03-08 18:30] LABS: Phosphorus 3.2 mg/dL (2.3-4.7)
[2024-03-08 18:36] LABS: ALT (SGPT) 15 U/L (8-55); AST (SGOT) 16 U/L (5-34); Albumin 4.2 g/dL (3.5-5.0); Alkaline Phosphatase 141 U/L (40-110); Anion Gap 15 mmol/L (10-20); BUN (Urea Nitrogen) 22 mg/dL (9.8-20.1); Bilirubin, Total 0.4 mg/dL (0.2-1.2); Calc. Creatinine Clearance 0 mL/min (70-130); Calcium 9.8 mg/dL (7.8-10.44); Carbon Dioxide 26 mmol/L (22-29); Chloride 93 mmol/L (98-107); Estimated GFR 29; Globulin 3.8 g/dL (2.4-3.5); Glucose 735 mg/dL (70-105); Lipase 24 U/L (8-78); Magnesium 2.2 mg/dL (1.6-2.6); Potassium 4.6 mmol/L (3.5-5.1); Sodium 129 mmol/L (136-145)
[2024-03-08 18:37] LABS: Troponin I Less than 0.010 ng/mL (< 0.028)
[2024-03-08] MEDS ORDERED: Morphine 2 MG/ML VIAL ONE (18:53)
[2024-03-08] MEDS ORDERED: Ondansetron PF 4 MG/2 ML Vial ONE (18:53)
[2024-03-08] MEDS ORDERED: NS 0.9% w/ 20 MEQ KCL 1,000 ML ONE (18:56)
[2024-03-08] MEDS ORDERED: INSULIN REGULAR IN 0.9 % NACL 100 ML ONE (18:56)
[2024-03-08] MEDS ORDERED: Dextrose 5 %-0.45 % NaCl 1,000 ML IV PRN (19:42)
[2024-03-08] MEDS ORDERED: Electrolyte Replacement Protocol 1 EACH IVPB PRN (19:42)
[2024-03-08] MEDS ORDERED: Sodium Chloride 0.9% 1,000 ML IV PRN ×4 (19:42)
[2024-03-08] MEDS ORDERED: NS 0.9% w/ 20 MEQ KCL 1,000 ML IV PRN ×2 (19:42)
[2024-03-08] MEDS ORDERED: INSULIN REGULAR IN 0.9 % NACL 100 ML IVPB SCH (19:45)
[2024-03-08] MEDS ORDERED: Calcium Carbonate 500 MG ChewTAB PO PRN (19:45)
[2024-03-08] MEDS ORDERED: Ondansetron ODT 4 MG TAB PO PRN (19:45)
[2024-03-08 20:51] LABS: Anion Gap 14 mmol/L (10-20); BUN (Urea Nitrogen) 20 mg/dL (9.8-20.1); Calc. Creatinine Clearance 32 mL/min (70-130); Calcium 8.9 mg/dL (7.8-10.44); Carbon Dioxide 20 mmol/L (22-29); Chloride 105 mmol/L (98-107); Estimated GFR 40; Glucose 441 mg/dL (70-105); Sodium 135 mmol/L (136-145)
[2024-03-08] MEDS ORDERED: D5 1/2 NS w/20 mEq KCL 1,000 ML ONE (22:04)
[2024-03-08] MEDS: D5 1/2 NS w/20 mEq KCL 1,000 ML IV PRN (22:05)
[2024-03-09] MEDS: Ondansetron PF 4 MG/2 ML Vial IVP PRN (00:28)
[2024-03-09] MEDS: Dextrose 50% Abboject 50 ML SYRINGE SLOW IVP PRN (00:32)
[2024-03-09] MEDS ORDERED: Dextrose 50% Abboject 50 ML SYRINGE SLOW IVP PRN (00:37)
[2024-03-09] MEDS ORDERED: Dextrose 5% in Water 1,000 ML IV PRN (00:37)
[2024-03-09] MEDS ORDERED: Glucagon 1 MG/ML KIT IM PRN (00:37)
[2024-03-09] MEDS: Dextrose 5%-Lactated Ringers 1,000 ML IV SCH (00:40)
[2024-03-09 01:05] LABS: Anion Gap 14 mmol/L (10-20); BUN (Urea Nitrogen) 16 mg/dL (9.8-20.1); Calc. Creatinine Clearance 39 mL/min (70-130); Calcium 8.9 mg/dL (7.8-10.44); Carbon Dioxide 20 mmol/L (22-29); Chloride 107 mmol/L (98-107); Estimated GFR 50; Glucose 317 mg/dL (70-105); Potassium 4.1 mmol/L (3.5-5.1); Sodium 137 mmol/L (136-145)
[2024-03-09] MEDS: Lactated Ringer's 1,000 ML IV SCH (01:52)
[2024-03-09] MEDS: Insulin Glargine 30 UNITS/0.3 ML VIAL SC SCH ×3 (01:58→22:09)
[2024-03-09 02:46] LABS: ALT (SGPT) 14 U/L (8-55); AST (SGOT) 17 U/L (5-34); Albumin 3.4 g/dL (3.5-5.0); Alkaline Phosphatase 99 U/L (40-110); Anion Gap 13 mmol/L (10-20); BUN (Urea Nitrogen) 16 mg/dL (9.8-20.1); Bilirubin, Total 0.5 mg/dL (0.2-1.2); Calc. Creatinine Clearance 40 mL/min (70-130); Calc. Creatinine Clearance 41 mL/min (70-130); Calcium 9.1 mg/dL (7.8-10.44); Carbon Dioxide 22 mmol/L (22-29); Carbon Dioxide 24 mmol/L (22-29); Chloride 105 mmol/L (98-107); Chloride 106 mmol/L (98-107); Estimated GFR 51; Estimated GFR 53; Globulin 3.3 g/dL (2.4-3.5); Glucose 196 mg/dL (70-105); Magnesium 2.1 mg/dL (1.6-2.6); Phosphorus 2.2 mg/dL (2.3-4.7); Potassium 4.2 mmol/L (3.5-5.1); Protein, Total 6.7 g/dL (6.0-8.3); Sodium 137 mmol/L (136-145); Sodium 138 mmol/L (136-145)
[2024-03-09 02:46] LABS: Glucose 197 mg/dL (70-105)
[2024-03-09 03:07] LABS: A1c 476.273 g/dL; Hemoglobin A1c Greater than 14.0 % (4.0-6.0)
[2024-03-09] MEDS: Insulin Lispro 100 UNIT/ML 10 ML VIAL SC PRN (05:13)
[2024-03-09] MEDS: Levothyroxine Sodium 75 MCG TAB PO SCH (05:13)
[2024-03-09] MEDS: Enoxaparin 30 MG (0.3 mL) SYRINGE SC SCH (09:16)
[2024-03-09] MEDS: Pantoprazole DR 40 MG TAB PO SCH (09:16)
[2024-03-09 13:09] VITALS: BMI 15.8
[2024-03-10 05:26] VITALS: BMI 16.1
[2024-03-10 07:04] LABS: Anion Gap 10 mmol/L (10-20); BUN (Urea Nitrogen) 20 mg/dL (9.8-20.1); Calc. Creatinine Clearance 37 mL/min (70-130); Calcium 9.1 mg/dL (7.8-10.44); Carbon Dioxide 28 mmol/L (22-29); Chloride 104 mmol/L (98-107); Estimated GFR 52; Glucose 257 mg/dL (70-105); Potassium 3.7 mmol/L (3.5-5.1); Sodium 138 mmol/L (136-145)
[2024-03-11 05:03] LABS: #Basophils 0.04 10x3/uL (0.0-0.2); %Basophils 0.6 % (0.0-1.0); %Eosinophils 1.9 % (0.0-10.0); %Lymphocytes 37.9 % (21.0-51.0); %Monocytes 6.4 % (0.0-10.0); %Neutrophils 52.6 % (42.0-75.0); Hematocrit 30.4 % (36.0-47.0); Mean Corpuscular HGB CONC 32.9 g/dL (32.0-36.0); Mean Corpuscular Hemoglobin 29.6 pg (27.0-31.0); Mean Corpuscular Volume 89.9 fL (78.0-98.0); Mean Platelet Volume 12.5 fL (7.4-10.4); Platelet Count 168 10x3/uL (130-400); RBC Distribution Width 13.6 % (11.5-14.5); Red Blood Cell (RBC) Count 3.38 mill/uL (4.20-5.40)
[2024-03-11 06:03] LABS: Anion Gap 14 mmol/L (10-20); BUN (Urea Nitrogen) 16 mg/dL (9.8-20.1); Calc. Creatinine Clearance 32 mL/min (70-130); Calcium 9.4 mg/dL (7.8-10.44); Carbon Dioxide 24 mmol/L (22-29); Chloride 105 mmol/L (98-107); Estimated GFR 43; Glucose 322 mg/dL (70-105); Sodium 139 mmol/L (136-145)
[2024-03-11] MEDS: Sodium Chloride 0.9% 1,000 ML IV SCH (10:19)
[2024-03-11] MEDS: Senokot S 8.6-50 MG TAB PO PRN (20:58)
[2024-03-11] MEDS: FLU (Fluarix Triv) TS24-25(6MOS UP)/PF 45 MCG/0.5 ML Syringe IM ONE (20:59)
[2024-03-12 05:56] LABS: #Basophils 0.05 10x3/uL (0.0-0.2); %Basophils 0.8 % (0.0-1.0); %Lymphocytes 38.6 % (21.0-51.0); %Monocytes 5.9 % (0.0-10.0); %Neutrophils 51.9 % (42.0-75.0); Hematocrit 26.3 % (36.0-47.0); Mean Corpuscular HGB CONC 34.2 g/dL (32.0-36.0); Mean Corpuscular Hemoglobin 30.3 pg (27.0-31.0); Mean Corpuscular Volume 88.6 fL (78.0-98.0); Mean Platelet Volume 12.1 fL (7.4-10.4); Platelet Count 157 10x3/uL (130-400); RBC Distribution Width 13.6 % (11.5-14.5); Red Blood Cell (RBC) Count 2.97 mill/uL (4.20-5.40)
[2024-03-12 06:22] LABS: Anion Gap 10 mmol/L (10-20); BUN (Urea Nitrogen) 21 mg/dL (9.8-20.1); Calc. Creatinine Clearance 45 mL/min (70-130); Calcium 8.6 mg/dL (7.8-10.44); Carbon Dioxide 26 mmol/L (22-29); Chloride 107 mmol/L (98-107); Estimated GFR 53; Glucose 105 mg/dL (70-105); Potassium 3.5 mmol/L (3.5-5.1); Sodium 139 mmol/L (136-145)
[2024-03-12] MEDS: Acetaminophen 325 MG TAB PO PRN (08:53)
[2024-03-12] MEDS: Potassium Chloride 20 MEQ TAB PO SCH (11:59)
[2024-03-12 17:26] VITALS: BP 138/85; TEMP 98
[2024-03-13] MEDS ORDERED: Enoxaparin 40 MG (0.4 mL) SYRINGE SC SCH (09:00)
== END 2024-03-12 16:58 | disposition home or self-care (01) | DRG 638 ==
LOC: ERS 17:11 → SUATTDRO 17:11 → ERHOLD 18:50 → CCU 03-09 00:02 → T4-B 03-09 11:46
PROVIDERS: ADMIT Internal Medicine; ATTEND Internal Medicine
DX: E11.00 Type 2 diabetes mellitus with hyperosmolarity without nonketotic hyperglycemic-hyperosmolar coma (NKHHC) (principal); E87.1 Hypo-osmolality and hyponatremia; N17.9 Acute kidney failure, unspecified; R64 Cachexia; Z68.1 Body mass index [BMI] 19.9 or less, adult; F39 Unspecified mood [affective] disorder; E03.9 Hypothyroidism, unspecified; E78.5 Hyperlipidemia, unspecified; F10.10 Alcohol abuse, uncomplicated; J44.9 Chronic obstructive pulmonary disease, unspecified; F14.10 Cocaine abuse, uncomplicated; N18.9 Chronic kidney disease, unspecified; M19.90 Unspecified osteoarthritis, unspecified site; E11.22 Type 2 diabetes mellitus with diabetic chronic kidney disease; F17.210 Nicotine dependence, cigarettes, uncomplicated; K21.9 Gastro-esophageal reflux disease without esophagitis; I12.9 Hypertensive chronic kidney disease with stage 1 through stage 4 chronic kidney disease, or unspecified chronic kidney disease; E86.0 Dehydration; Z88.1 Allergy status to other antibiotic agents; Z91.148 Patient's other noncompliance with medication regimen for other reason; Z71.51 Drug abuse counseling and surveillance of drug abuser; Z79.890 Hormone replacement therapy; Z90.710 Acquired absence of both cervix and uterus
CPT/HCPCS: 36415; 36416; 70450; 71045; 80048; 80053; 82010; 82805; 83036; 83690; 83735; 83930; 84100; 84484; 85025; 93005; J1650; J1815; J2272; J2405; J3480; J7030; J7120; J7999

== ENCOUNTER 2024-06-18 18:53 | Inpatient (IN) | payer MEDICARE, MEDICAID ==
[2024-06-18 19:47] LABS: #Basophils 0.05 10x3/uL (0.0-0.2); %Basophils 0.6 % (0.0-1.0); %Eosinophils 0.9 % (0.0-10.0); %Lymphocytes 16.7 % (21.0-51.0); %Monocytes 5.4 % (0.0-10.0); %Neutrophils 75.9 % (42.0-75.0); Hematocrit 34.6 % (36.0-47.0); Hemoglobin 12.1 g/dL (12.0-16.0); Mean Corpuscular Hemoglobin 28.9 pg (27.0-31.0); Mean Corpuscular Volume 82.6 fL (78.0-98.0); Mean Platelet Volume 12.4 fL (7.4-10.4); Platelet Count 173 10x3/uL (130-400); RBC Distribution Width 13.2 % (11.5-14.5); Red Blood Cell (RBC) Count 4.19 mill/uL (4.20-5.40)
[2024-06-18 19:59] LABS: Phosphorus 3.8 mg/dL (2.3-4.7)
[2024-06-18 20:04] LABS: ALT (SGPT) 16 U/L (8-55); AST (SGOT) 16 U/L (5-34); Albumin 3.7 g/dL (3.5-5.0); Alkaline Phosphatase 161 U/L (40-110); Anion Gap 18 mmol/L (10-20); BUN (Urea Nitrogen) 33 mg/dL (9.8-20.1); Bilirubin, Total 0.4 mg/dL (0.2-1.2); Calc. Creatinine Clearance 0 mL/min (70-130); Calcium 9.1 mg/dL (7.8-10.44); Carbon Dioxide 21 mmol/L (22-29); Chloride 94 mmol/L (98-107); Estimated GFR 38; Globulin 3.8 g/dL (2.4-3.5); Glucose 766 mg/dL (70-105); Protein, Total 7.5 g/dL (6.0-8.3); Sodium 128 mmol/L (136-145)
[2024-06-18 20:19] LABS: Actual Bicarbonate (HCO3v) 24.4 mEq/L (22-28); Base Excess -3.3 mEq/L (-2.0 to +3.0); Calcium, Ionized (venous) 1.17 mmol/L (1.16-1.32); Chloride (VBG) 94 mmol/L (98-106); Hematocrit-VBG 38 % (36.0-47.0); Hemoglobin (Hb) 12.9 g/dL (11.7-16.0); Potassium (VBG) 4.81 mmol/L (3.70-5.30); Sodium 129 mmol/L (133-146); pH (venous) 7.263 (7.32-7.43)
[2024-06-18 20:42] LABS: Acetaminophen 11 mcg/mL (Less than 10); Alcohol Less than 10.0 mg/dL (Less than 10); Salicylate Less than 8.0 mg/dL (Less than 8.0)
[2024-06-18] MEDS ORDERED: Insulin Regular, Human 100 UNIT/ML 10 ML VIAL ONE (20:43)
[2024-06-18] MEDS ORDERED: INSULIN REGULAR IN 0.9 % NACL 0 ML ONE (21:42)
[2024-06-18 21:54] LABS: Bacteria/HPF None Seen HPF (None Seen); Bilirubin Negative (Negative); Blood, Urine Negative (Negative); CAUTI Indications for Culture Alt mental st,lethar; Clarity Clear (Clear); Glucose, Urine (Dipstick) Greater than 1000 mg/dL (Negative); Ketone, Urine Negative (Negative); Leukocyte Negative Leu/uL (Negative); Nitrite Negative (Negative); Protein, Urine (Dipstick) Negative (Neg-Trace); RBC/HPF 0-3 HPF (0-3); Squamous Epithelial 0-3 HPF (0-3); Urobilinogen Normal mg/dL (Less than 2); WBC/HPF 0-3 HPF (0-3); pH, Urine 5.5 (5.0-9.0)
[2024-06-18 21:55] LABS: Amphetamine Not Detected (NotDetected); Barbiturates Screen Not Detected (NotDetected); Benzodiazepine Screen Not Detected (NotDetected); Cocaine Metabolite Screen Detected (NotDetected); Methadone Not Detected (NotDetected); Methamphetamine Not Detected (NotDetected); Opiate Screen Not Detected (NotDetected); Oxycodone Screen Not Detected (NotDetected); Phencyclidine (PCP) Not Detected (NotDetected); THC/Cannabinoid Screen Not Detected (NotDetected); Tricyclic Screen Not Detected (NotDetected); Urine Culture Reflex No No
[2024-06-18] MEDS ORDERED: NS 0.9% w/ 20 MEQ KCL 1,000 ML IV PRN ×2 (22:52)
[2024-06-18] MEDS ORDERED: D5 1/2 NS w/20 mEq KCL 1,000 ML IV PRN (22:52)
[2024-06-18] MEDS ORDERED: Dextrose 50% Abboject 50 ML SYRINGE SLOW IVP PRN (22:52)
[2024-06-18] MEDS ORDERED: Sodium Chloride 0.9% 1,000 ML IV PRN ×4 (22:52)
[2024-06-18] MEDS ORDERED: Dextrose 5 %-0.45 % NaCl 1,000 ML IV PRN (22:52)
[2024-06-18] MEDS ORDERED: Ondansetron PF 4 MG/2 ML Vial IVP PRN (22:52)
[2024-06-18] MEDS ORDERED: Electrolyte Replacement Protocol 1 EACH IVPB SCH (22:52)
[2024-06-18] MEDS ORDERED: Acetaminophen 500 MG TAB PO PRN (22:52)
[2024-06-18] MEDS ORDERED: INSULIN REGULAR IN 0.9 % NACL 100 ML IVPB SCH (23:00)
[2024-06-19] MEDS ORDERED: Dextrose 5% in Water 1,000 ML IV PRN (00:22)
[2024-06-19] MEDS ORDERED: Dextrose 50% Abboject 50 ML SYRINGE SLOW IVP PRN (00:22)
[2024-06-19] MEDS ORDERED: Glucagon 1 MG/ML KIT IM PRN (00:22)
[2024-06-19 02:15] VITALS: BMI 16.4
[2024-06-19 02:35] LABS: #Basophils 0.07 10x3/uL (0.0-0.2); %Basophils 0.8 % (0.0-1.0); %Eosinophils 1.8 % (0.0-10.0); %Lymphocytes 23.8 % (21.0-51.0); %Monocytes 7.5 % (0.0-10.0); %Neutrophils 65.4 % (42.0-75.0); Hematocrit 34.2 % (36.0-47.0); Hemoglobin 11.6 g/dL (12.0-16.0); Mean Corpuscular HGB CONC 33.9 g/dL (32.0-36.0); Mean Corpuscular Hemoglobin 28.4 pg (27.0-31.0); Mean Corpuscular Volume 83.8 fL (78.0-98.0); Mean Platelet Volume 12.3 fL (7.4-10.4); Platelet Count 190 10x3/uL (130-400); RBC Distribution Width 13.2 % (11.5-14.5); Red Blood Cell (RBC) Count 4.08 mill/uL (4.20-5.40)
[2024-06-19] MEDS: Thiamine HCl 200 MG/2 ML VIAL SLOW IVP SCH (02:39)
[2024-06-19 02:49] LABS: Lactic Acid 2.23 mmol/L (0.5-2.2)
[2024-06-19 02:54] LABS: Anion Gap 13 mmol/L (10-20); BUN (Urea Nitrogen) 24 mg/dL (9.8-20.1); Calc. Creatinine Clearance 41 mL/min (70-130); Calcium 9.1 mg/dL (7.8-10.44); Carbon Dioxide 24 mmol/L (22-29); Chloride 108 mmol/L (98-107); Estimated GFR 52; Glucose 119 mg/dL (70-105); Sodium 141 mmol/L (136-145)
[2024-06-19 04:01] LABS: Troponin I Less than 0.010 ng/mL (< 0.028)
[2024-06-19 07:54] LABS: Anion Gap 14 mmol/L (10-20); BUN (Urea Nitrogen) 20 mg/dL (9.8-20.1); Calc. Creatinine Clearance 49 mL/min (70-130); Calcium 9.1 mg/dL (7.8-10.44); Carbon Dioxide 23 mmol/L (22-29); Chloride 107 mmol/L (98-107); Estimated GFR 66; Glucose 166 mg/dL (70-105); Sodium 140 mmol/L (136-145)
[2024-06-19 08:40] LABS: Hemoglobin A1c Greater than 14.0 % (4.0-6.0)
[2024-06-19] MEDS: Enoxaparin 40 MG (0.4 mL) SYRINGE SC SCH (09:21)
[2024-06-19] MEDS: Magnesium 2 GM/50 ML(in water) 2 GM in Premix 1 BAG IVPB SCH (09:21)
[2024-06-19] MEDS: Folic Acid 1 MG TAB PO SCH (09:21)
[2024-06-19] MEDS: Insulin Glargine 30 UNITS/0.3 ML VIAL SC SCH ×2 (09:21→22:26)
[2024-06-19] MEDS: Thiamine 100 MG TAB PO SCH (09:22)
[2024-06-19] MEDS: Insulin Lispro 100 UNIT/ML 10 ML VIAL SC PRN ×2 (16:47→22:26)
[2024-06-20 04:50] LABS: #Basophils 0.07 10x3/uL (0.0-0.2); %Basophils 0.7 % (0.0-1.0); %Eosinophils 0.6 % (0.0-10.0); %Lymphocytes 26.2 % (21.0-51.0); %Monocytes 5.2 % (0.0-10.0); %Neutrophils 66.6 % (42.0-75.0); Hematocrit 38.9 % (36.0-47.0); Hemoglobin 13.1 g/dL (12.0-16.0); Mean Corpuscular HGB CONC 33.7 g/dL (32.0-36.0); Mean Corpuscular Hemoglobin 28.4 pg (27.0-31.0); Mean Corpuscular Volume 84.4 fL (78.0-98.0); Mean Platelet Volume 12.2 fL (7.4-10.4); Platelet Count 248 10x3/uL (130-400); RBC Distribution Width 13.7 % (11.5-14.5); Red Blood Cell (RBC) Count 4.61 mill/uL (4.20-5.40)
[2024-06-20] MEDS: Levothyroxine Sodium 75 MCG TAB PO SCH (05:56)
[2024-06-20 06:07] LABS: Anion Gap 14 mmol/L (10-20); BUN (Urea Nitrogen) 22 mg/dL (9.8-20.1); Calc. Creatinine Clearance 39 mL/min (70-130); Calcium 9.4 mg/dL (7.8-10.44); Carbon Dioxide 22 mmol/L (22-29); Chloride 103 mmol/L (98-107); Estimated GFR 49; Glucose 197 mg/dL (70-105); Magnesium 2.4 mg/dL (1.6-2.6); Potassium 3.8 mmol/L (3.5-5.1); Sodium 135 mmol/L (136-145)
[2024-06-20] MEDS: Lisinopril 2.5 MG TAB PO SCH (09:57)
[2024-06-20 11:02] VITALS: BP 132/76; TEMP 97.3
[2024-06-20 13:22] VITALS: BMI 16.4
== END 2024-06-20 15:00 | disposition home or self-care (01) | DRG 638 ==
LOC: ERS 18:53 → INTOOBSV 06-19 01:31 → 2NO 06-19 01:31 → OBSVTOIN 06-20 11:11
PROVIDERS: ADMIT Internal Medicine; ATTEND Internal Medicine
DX: E11.10 Type 2 diabetes mellitus with ketoacidosis without coma (principal); I13.0 Hypertensive heart and chronic kidney disease with heart failure and stage 1 through stage 4 chronic kidney disease, or unspecified chronic kidney disease; I50.32 Chronic diastolic (congestive) heart failure; N17.9 Acute kidney failure, unspecified; N18.30 Chronic kidney disease, stage 3 unspecified; E78.5 Hyperlipidemia, unspecified; E03.9 Hypothyroidism, unspecified; K21.9 Gastro-esophageal reflux disease without esophagitis; E11.22 Type 2 diabetes mellitus with diabetic chronic kidney disease; F14.10 Cocaine abuse, uncomplicated; Z90.710 Acquired absence of both cervix and uterus; Z79.4 Long term (current) use of insulin; Z90.49 Acquired absence of other specified parts of digestive tract; Z91.199 Patient's noncompliance with other medical treatment and regimen due to unspecified reason
CPT/HCPCS: 36415; 36416; 71045; 80048; 80053; 80306; 80307; 81001; 82010; 82805; 83036; 83605; 83690; 83735; 84100; 84443; 84484; 85025; 93005; 96372; 96374; 96375; G0378; J1650; J1815; J3411; J3475

== ENCOUNTER 2025-03-20 11:50 | Inpatient (IN) | payer MEDICARE, MEDICAID ==
[2025-03-20] MEDS ORDERED: Glucagon 1 MG/ML KIT IM PRN (15:17)
[2025-03-20] MEDS ORDERED: Dextrose 50% Abboject 50 ML SYRINGE SLOW IVP PRN (15:17)
[2025-03-20] MEDS: Insulin Glargine 30 UNITS/0.3 ML VIAL SC SCH ×2 (15:44→20:05)
[2025-03-20] MEDS: FLU (Fluarix Triv) 25-26 (6MOS UP)/PF 45 MCG/0.5 ML Syringe IM ONE (17:13)
[2025-03-20] MEDS: Ondansetron PF 4 MG/2 ML Vial IVP PRN (18:26)
[2025-03-20] MEDS: Calcium Carbonate 500 MG ChewTAB PO PRN (18:38)
[2025-03-20] MEDS: Famotidine 20 MG TAB PO SCH (20:04)
[2025-03-21 04:59] LABS: #Basophils 0.06 10x3/uL (0.0-0.2); #Eosinophils 0.05 10x3/uL (0.0-0.7); #Monocytes 0.46 10x3/uL (0.11-0.59); #Neutrophils 6.13 10x3/uL (1.40-6.50); %Basophils 0.6 % (0.0-1.0); %Eosinophils 0.5 % (0.0-10.0); %Lymphocytes 29.1 % (21.0-51.0); %Monocytes 4.8 % (0.0-10.0); %Neutrophils 64.5 % (42.0-75.0); Hematocrit 31.3 % (36.0-47.0); Hemoglobin 10.7 g/dL (12.0-16.0); Mean Corpuscular Hemoglobin 28.2 pg (27.0-31.0); Mean Corpuscular Volume 82.6 fL (78.0-98.0); Platelet Count 175 10x3/uL (130-400); Red Blood Cell (RBC) Count 3.79 mill/uL (4.20-5.40); White Blood Cell (WBC) Count 9.52 10x3/uL (4.8-10.8)
[2025-03-21 05:16] LABS: ALT (SGPT) Less than 7 U/L (Less than 34); AST (SGOT) 19 U/L (11-34); Albumin 3.0 g/dL (3.1-4.5); Alkaline Phosphatase 96 U/L (40-110); Anion Gap 9 mmol/L (10-20); BUN (Urea Nitrogen) 34 mg/dL (9.8-20.1); Bilirubin, Total 0.2 mg/dL (0.3-1.2); Calc. Creatinine Clearance 36 mL/min (70-130); Calcium 9.2 mg/dL (7.8-10.44); Carbon Dioxide 26 mmol/L (22-29); Chloride 105 mmol/L (98-107); Globulin 2.9 g/dL (2.4-3.5); Glucose 118 mg/dL (70-105); Potassium 3.9 mmol/L (3.5-5.1); Sodium 136 mmol/L (136-145)
[2025-03-21 05:38] LABS: Free T4 (Free Thyroxine) 0.78 ng/dL (0.70-1.48); Thyroid Stimulating Hormone 6.2941 uIU/mL (0.35-4.94)
[2025-03-21] MEDS: Sertraline 25 MG TAB PO SCH (08:59)
[2025-03-21] MEDS ORDERED: Mag-Al Plus 1200/1200/120 MG (30 mL) UDCUP PO PRN (09:14)
[2025-03-21 15:34] VITALS: BMI 15.2
[2025-03-22 04:52] LABS: #Basophils 0.03 10x3/uL (0.0-0.2); #Eosinophils 0.07 10x3/uL (0.0-0.7); #Monocytes 0.28 10x3/uL (0.11-0.59); #Neutrophils 2.86 10x3/uL (1.40-6.50); %Basophils 0.6 % (0.0-1.0); %Eosinophils 1.3 % (0.0-10.0); %Lymphocytes 38.3 % (21.0-51.0); %Monocytes 5.3 % (0.0-10.0); %Neutrophils 53.7 % (42.0-75.0); Hematocrit 30.5 % (36.0-47.0); Hemoglobin 10.1 g/dL (12.0-16.0); Mean Corpuscular Hemoglobin 27.7 pg (27.0-31.0); Mean Corpuscular Volume 83.8 fL (78.0-98.0); Platelet Count 160 10x3/uL (130-400); Red Blood Cell (RBC) Count 3.64 mill/uL (4.20-5.40); White Blood Cell (WBC) Count 5.32 10x3/uL (4.8-10.8)
[2025-03-22 05:10] LABS: Cocaine Metabolite Screen PRELIM POSITIVE (Negative); THC/Cannabinoid Screen Negative (Negative); Tricyclic Screen Negative (Negative)
[2025-03-22 05:24] LABS: ALT (SGPT) Less than 7 U/L (Less than 34); AST (SGOT) 20 U/L (11-34); Albumin 2.6 g/dL (3.1-4.5); Alkaline Phosphatase 87 U/L (40-110); Anion Gap 8 mmol/L (10-20); BUN (Urea Nitrogen) 19 mg/dL (9.8-20.1); Bilirubin, Total 0.1 mg/dL (0.3-1.2); Calc. Creatinine Clearance 41 mL/min (70-130); Calcium 8.4 mg/dL (7.8-10.44); Carbon Dioxide 25 mmol/L (22-29); Chloride 111 mmol/L (98-107); Globulin 2.7 g/dL (2.4-3.5); Glucose 245 mg/dL (70-105); Magnesium 1.7 mg/dL (1.6-2.6); Potassium 3.7 mmol/L (3.5-5.1); Sodium 140 mmol/L (136-145)
[2025-03-22] MEDS: Lisinopril 2.5 MG TAB PO SCH (08:32)
[2025-03-22] MEDS: Pantoprazole 40 MG DR.TAB PO SCH (08:32)
[2025-03-22] MEDS: Famotidine 20 MG TAB PO SCH ×2 (08:32→20:59)
[2025-03-22] MEDS: Acetaminophen 500 MG TAB PO PRN (08:35)
[2025-03-22 16:25] VITALS: BMI 15.2
[2025-03-23 06:01] LABS: #Basophils 0.04 10x3/uL (0.0-0.2); #Eosinophils 0.10 10x3/uL (0.0-0.7); #Monocytes 0.31 10x3/uL (0.11-0.59); #Neutrophils 3.10 10x3/uL (1.40-6.50); %Basophils 0.7 % (0.0-1.0); %Eosinophils 1.8 % (0.0-10.0); %Lymphocytes 35.0 % (21.0-51.0); %Monocytes 5.6 % (0.0-10.0); %Neutrophils 56.0 % (42.0-75.0); Hematocrit 31.6 % (36.0-47.0); Hemoglobin 10.4 g/dL (12.0-16.0); Mean Corpuscular Hemoglobin 28.1 pg (27.0-31.0); Mean Corpuscular Volume 85.4 fL (78.0-98.0); Platelet Count 156 10x3/uL (130-400); Red Blood Cell (RBC) Count 3.70 mill/uL (4.20-5.40); White Blood Cell (WBC) Count 5.54 10x3/uL (4.8-10.8)
[2025-03-23 06:22] LABS: ALT (SGPT) 25 U/L (Less than 34); AST (SGOT) 47 U/L (11-34); Albumin 2.8 g/dL (3.1-4.5); Alkaline Phosphatase 91 U/L (40-110); Anion Gap 9 mmol/L (10-20); BUN (Urea Nitrogen) 16 mg/dL (9.8-20.1); Bilirubin, Total 0.2 mg/dL (0.3-1.2); Calc. Creatinine Clearance 46 mL/min (70-130); Calcium 8.7 mg/dL (7.8-10.44); Carbon Dioxide 26 mmol/L (22-29); Chloride 109 mmol/L (98-107); Globulin 2.8 g/dL (2.4-3.5); Glucose 233 mg/dL (70-105); Magnesium 1.6 mg/dL (1.6-2.6); Potassium 3.9 mmol/L (3.5-5.1); Sodium 140 mmol/L (136-145)
[2025-03-23 08:12] VITALS: BP 138/62; TEMP 98
== END 2025-03-23 11:42 | disposition home or self-care (01) | DRG 638 ==
LOC: OBS 13:46
PROVIDERS: ADMIT Family Medicine; ATTEND Internal Medicine
DX: E11.65 Type 2 diabetes mellitus with hyperglycemia (principal); N17.9 Acute kidney failure, unspecified; E03.9 Hypothyroidism, unspecified; I10 Essential (primary) hypertension; E78.5 Hyperlipidemia, unspecified; F39 Unspecified mood [affective] disorder; Z79.899 Other long term (current) drug therapy; Z88.8 Allergy status to other drugs, medicaments and biological substances; J44.9 Chronic obstructive pulmonary disease, unspecified; E87.5 Hyperkalemia; N18.9 Chronic kidney disease, unspecified; F19.10 Other psychoactive substance abuse, uncomplicated; N18.30 Chronic kidney disease, stage 3 unspecified
CPT/HCPCS: 36415; 36416; 80053; 80306; 83036; 83735; 84439; 84443; 84481; 85025; 90656; J1815; J2270; J2405; J2550; J7030; Q0162